=== PATIENT | female | born 1950 | race Caucasian/White ===

== ENCOUNTER 2016-05-28 09:33 | Emergency (ER) | payer MEDICAID ==
[~2016-05-28] VITALS: Ht 154.9 cm; Wt 95.3 kg
[2016-05-28] MEDS ORDERED: SODIUM CHLORIDE 0.9% 1,000 ML IV ONE (10:08)
[2016-05-28 10:13] LABS: Urine RBC None Seen /hpf (0 - 4)
[2016-05-28 10:20] LABS: Urine Bilirubin Negative (Negative); Urine Blood Negative /uL (Negative); Urine Color Yellow (Yellow); Urine Glucose Normal (Normal); Urine Ketone Negative (Negative); Urine Nitrite Negative (Negative); Urine Squamous Epithelial Cell FEW /hpf (<5); Urine Urobilinogen Normal (Negative)
[2016-05-28 10:29] LABS: Basophils # (auto) 0.1 uL; Basophils % (auto) 0.8 % (0.0-2.0); Eosinophils # (auto) 0.2 uL; Eosinophils % (auto) 1.6 % (0.0-7.0); Hematocrit 40.7 % (36.0-46.0); Hemoglobin 13.4 g/dL (12.2-16.2); Lymphocytes % (auto) 23.6 % (10.0-50.0); Mean Corpuscular Hemoglobin 28.5 pg (28.0-32.0); Mean Corpuscular Hgb Conc. 32.9 g/dL (32.0-36.0); Mean Corpuscular Volume 86.7 fL (80.0-100.0); Mean Platelet Volume 7.9 fL (7.4-10.4); Monocytes # (auto) 0.7 uL; Monocytes % (auto) 5.6 % (0.0-12.0); Neutrophils # (auto) 8.8 uL; Neutrophils % (auto) 68.4 % (37.0-80.0); Platelet Count (auto) 361 10^3/uL (140-450); Red Cell Distribution Width 15.1 % (11.6-16.0); White Blood Cell 12.8 10^3/uL (4.4-10.8)
[2016-05-28 10:57] LABS: Albumin 3.4 g/dL (3.4-5.0); BUN/Creatinine Ratio 14.5; Bilirubin, Total 0.3 mg/dL (0.2-1.0); Calcium 8.8 mg/dL (8.5-10.1); Total Protein 7.2 g/dL (6.4-8.2)
[2016-05-28 11:13] VITALS: BP 123/75
== END 2016-05-28 12:54 | disposition home or self-care (01) ==
LOC: ER 09:33
DX: N39.0 Urinary tract infection, site not specified (principal); M19.90 Unspecified osteoarthritis, unspecified site; J45.909 Unspecified asthma, uncomplicated; K21.9 Gastro-esophageal reflux disease without esophagitis; I10 Essential (primary) hypertension; R51 Headache
CPT/HCPCS: 36415; 70450; 71010; 80053; 81001; 85025; 96360; 99285; J7030; 93005

== ENCOUNTER 2020-01-07 10:13 | Emergency (ER) | payer MEDICAID, OTHER ==
[~2020-01-07] VITALS: Ht 154.9 cm; Wt 97.5 kg
[2020-01-07 10:22] VITALS: BP 139/70
== END 2020-01-07 11:26 | disposition home or self-care (01) ==
LOC: ER 10:13
DX: B35.9 Dermatophytosis, unspecified (principal); L01.00 Impetigo, unspecified; K21.9 Gastro-esophageal reflux disease without esophagitis; J45.909 Unspecified asthma, uncomplicated; Z90.710 Acquired absence of both cervix and uterus; Z88.0 Allergy status to penicillin; Z88.2 Allergy status to sulfonamides

== ENCOUNTER 2020-02-15 13:36 | Emergency (ER) | payer OTHER ==
[~2020-02-15] VITALS: Ht 154.9 cm; Wt 95.3 kg
[2020-02-15 15:01] VITALS: BP 129/88
== END 2020-02-15 15:43 | disposition home or self-care (01) ==
LOC: ER 13:36
DX: B00.1 Herpesviral vesicular dermatitis (principal); M19.90 Unspecified osteoarthritis, unspecified site; J45.909 Unspecified asthma, uncomplicated; Z90.710 Acquired absence of both cervix and uterus; Z90.89 Acquired absence of other organs; Z88.0 Allergy status to penicillin; Z88.2 Allergy status to sulfonamides

== ENCOUNTER → 2022-11-21 | Outpatient (CLI) | payer OTHER ==
[2022-11-21 11:30] LABS: Basophils # (auto) 0.1 10 ^3/uL (0-0.2); Basophils % (auto) 0.6 % (0.0-2.0); Eosinophils # (auto) 0.2 10 ^3/uL (0-0.8); Hemoglobin 14.2 g/dL (12.2-16.2); Lymphocytes # (auto) 4.5 10 ^3/uL (0.4-5.4); Lymphocytes % (auto) 45.8 % (10.0-50.0); Mean Corpuscular Hgb Conc. 33.1 g/dL (32.0-36.0); Mean Corpuscular Volume 87.8 fL (80.0-100.0); Monocytes # (auto) 0.6 10 ^3/uL (0-1.3); Monocytes % (auto) 6.2 % (0.0-12.0); Neutrophils # (auto) 4.5 10 ^3/uL (1.6-8.6); Neutrophils % (auto) 45.4 % (37.0-80.0); Nucleated Red Blood Cells % 0.1 %; Red Blood Cells 4.89 10^6/uL (4.0-5.20); Red Cell Distribution Width 13.6 % (11.8-14.3); White Blood Cell 9.9 10^3/uL (4.4-10.8)
[2022-11-21 11:34] LABS: Urine Bacteria FEW /hpf (None Seen); Urine Blood Negative /uL (Negative); Urine Clarity Clear (Clear); Urine Color Yellow (Yellow); Urine Mucus FEW (None Seen); Urine Protein, UAD TRACE (Negative); Urine Specific Gravity 1.022 (1.001-1.035); Urine Urobilinogen Normal (Negative); Urine WBC 2 /hpf (0 - 5)
[2022-11-21 12:01] LABS: Alanine Aminotransferase 21 U/L (7-40); Albumin 4.4 g/dL (3.2-4.8); Alkaline Phosphatase 92 U/L (46-116); Anion Gap 6.9 (5-15); Aspartate Aminotransferase 21 U/L (13-40); Blood Urea Nitrogen 13 mg/dL (9-23); Calcium 9.5 mg/dL (8.5-10.1); Carbon Dioxide 26.1 mmol/L (20-30); Chloride 106 mmol/L (98-107); Cholesterol 145 mg/dL (< 200); Glucose 89 mg/dL (74-106); LDL Cholesterol 77 mg/dL (< 100); Potassium 4.7 mmol/L (3.5-5.1); Sodium 139 mmol/L (136-145); Triglycerides 75 mg/dL (< 150)
[2022-11-21 12:02] LABS: Bilirubin, Total 0.5 mg/dL (0.2-1.0); HDL Cholesterol 61 mg/dL (40-59)
== END | disposition home or self-care (01) ==
LOC: LAB 10:53
PROVIDERS: ATTEND Internal Medicine
DX: Z00.00 Encounter for general adult medical examination without abnormal findings (principal); E78.5 Hyperlipidemia, unspecified; E03.9 Hypothyroidism, unspecified; E55.9 Vitamin D deficiency, unspecified; R73.9 Hyperglycemia, unspecified
CPT/HCPCS: 36415; 80053; 80061; 81001; 82306; 83036; 84436; 84443; 85025; 87086

== ENCOUNTER 2023-03-30 14:18 | Emergency (ER) | payer OTHER ==
[~2023-03-30] VITALS: Ht 154.9 cm; Wt 97.8 kg
[2023-03-30 14:44] LABS: Basophils # (auto) 0.1 10 ^3/uL (0-0.2); Basophils % (auto) 0.5 % (0.0-2.0); Eosinophils # (auto) 0.2 10 ^3/uL (0-0.8); Eosinophils % (auto) 1.5 % (0.0-7.0); Hematocrit 43.9 % (36.0-46.0); Hemoglobin 14.2 g/dL (12.2-16.2); Lymphocytes # (auto) 4.5 10 ^3/uL (0.4-5.4); Lymphocytes % (auto) 44.1 % (10.0-50.0); Mean Corpuscular Hemoglobin 29.1 pg (28.0-32.0); Mean Corpuscular Hgb Conc. 32.4 g/dL (32.0-36.0); Mean Corpuscular Volume 89.8 fL (80.0-100.0); Monocytes # (auto) 0.7 10 ^3/uL (0-1.3); Monocytes % (auto) 6.6 % (0.0-12.0); Neutrophils # (auto) 4.8 10 ^3/uL (1.6-8.6); Neutrophils % (auto) 47.3 % (37.0-80.0); Red Blood Cells 4.89 10^6/uL (4.0-5.20); Red Cell Distribution Width 13.9 % (11.8-14.3); White Blood Cell 10.2 10^3/uL (4.4-10.8)
[2023-03-30 15:09] LABS: Alanine Aminotransferase 19 U/L (7-40); Albumin 4.7 g/dL (3.2-4.8); Alkaline Phosphatase 89 U/L (46-116); Anion Gap 8 (5-15); Aspartate Aminotransferase 22 U/L (13-40); BUN/Creatinine Ratio 11.3 (10.0-20.0); Bilirubin, Total 0.5 mg/dL (0.2-1.0); Blood Urea Nitrogen 11 mg/dL (9-23); Calcium 9.4 mg/dL (8.7-10.4); Carbon Dioxide 25 mmol/L (20-30); Chloride 105 mmol/L (98-107); Glucose 137 mg/dL (74-106); Magnesium 1.8 mg/dL (1.6-2.6); Potassium 4.3 mmol/L (3.5-5.1); Sodium 138 mmol/L (136-145); Total Protein 7.2 g/dL (5.7-8.2)
[2023-03-30 15:10] LABS: INR 1.07 (0.9-1.15); Partial Thromboplastin Time 27.7 SEC (24.5-34.5); Prothrombin Time 11.2 sec (9.3-11.8)
[2023-03-30] MEDS ORDERED: LORazepam 0.5 MG TAB PO ONE (15:30)
[2023-03-30 15:56] VITALS: BP 145/62; PULSE 82; RESP 18; TEMP 98.6; O2SAT 97
[2023-03-30 16:43] LABS: Urine Bacteria NONE SEEN /hpf (None Seen); Urine Blood Negative /uL (Negative); Urine Clarity Clear (Clear); Urine Color Colorless (Yellow); Urine Hyaline Cast FEW /lpf (0 - 2); Urine Mucus FEW (None Seen); Urine Protein, UAD Negative (Negative); Urine Specific Gravity 1.007 (1.001-1.035); Urine Urobilinogen Normal (Negative); Urine WBC 1 /hpf (0 - 5)
== END 2023-03-30 17:13 | disposition home or self-care (01) ==
LOC: ER 14:18
DX: E07.9 Disorder of thyroid, unspecified (principal); R00.2 Palpitations; M19.90 Unspecified osteoarthritis, unspecified site; J45.909 Unspecified asthma, uncomplicated; K21.9 Gastro-esophageal reflux disease without esophagitis; Z98.890 Other specified postprocedural states; Z88.8 Allergy status to other drugs, medicaments and biological substances; Z79.899 Other long term (current) drug therapy
CPT/HCPCS: 36415; 71045; 80053; 81001; 83735; 84443; 84484; 85025; 85610; 85730; 93005

== ENCOUNTER → 2023-05-30 | Outpatient (CLI) | payer MEDICAID ==
[2023-05-30 10:42] LABS: Basophils # (auto) 0 10 ^3/uL (0-0.2); Basophils % (auto) 0.8 % (0.0-2.0); Eosinophils # (auto) 0.1 10 ^3/uL (0-0.8); Eosinophils % (auto) 2.4 % (0.0-7.0); Hematocrit 40.7 % (36.0-46.0); Hemoglobin 13.4 g/dL (12.2-16.2); Lymphocytes # (auto) 2.9 10 ^3/uL (0.4-5.4); Lymphocytes % (auto) 45.1 % (10.0-50.0); Mean Corpuscular Hemoglobin 29.6 pg (28.0-32.0); Mean Corpuscular Volume 89.7 fL (80.0-100.0); Monocytes # (auto) 0.5 10 ^3/uL (0-1.3); Monocytes % (auto) 7.5 % (0.0-12.0); Neutrophils # (auto) 2.8 10 ^3/uL (1.6-8.6); Neutrophils % (auto) 44.2 % (37.0-80.0); Red Blood Cells 4.54 10^6/uL (4.0-5.20); White Blood Cell 6.4 10^3/uL (4.4-10.8)
[2023-05-30 11:00] LABS: Urine Bacteria NONE SEEN /hpf (None Seen); Urine Blood Negative /uL (Negative); Urine Clarity Clear (Clear); Urine Color Colorless (Yellow); Urine Protein, UAD Negative (Negative); Urine Specific Gravity 1.016 (1.001-1.035); Urine Urobilinogen Normal (Negative); Urine WBC 2 /hpf (0 - 5)
[2023-05-30 11:27] LABS: Folate (Folic Acid) > 24.00 ng/mL (>5.38); T3 Total 1.03 ng/mL (0.60-1.81)
[2023-05-30 11:28] LABS: Ferritin 26.7 ng/mL (10-291)
[2023-05-30 11:52] LABS: Alanine Aminotransferase 18 U/L (7-40); Albumin 4.4 g/dL (3.2-4.8); Alkaline Phosphatase 78 U/L (46-116); Anion Gap 6 (5-15); Aspartate Aminotransferase 22 U/L (13-40); BUN/Creatinine Ratio 14.5 (10.0-20.0); Bilirubin, Total 0.3 mg/dL (0.2-1.0); Blood Urea Nitrogen 12 mg/dL (9-23); Calcium 9.3 mg/dL (8.7-10.4); Carbon Dioxide 28 mmol/L (20-30); Chloride 107 mmol/L (98-107); Creatine Kinase IFCC 59 U/L (34-145); Glucose 87 mg/dL (74-106); Potassium 4.6 mmol/L (3.5-5.1); Sodium 141 mmol/L (136-145); Total Protein 7.2 g/dL (5.7-8.2)
[2023-05-30 12:50] LABS: % Iron Saturation 22.3 % (15-50)
[2023-05-30 13:00] LABS: LDL Cholesterol 82 mg/dL (< 100); Triglycerides 100 mg/dL (< 150)
[2023-05-30 13:01] LABS: Cholesterol 152 mg/dL (< 200)
[2023-05-30 13:02] LABS: HDL Cholesterol 62 mg/dL (40-59)
== END | disposition home or self-care (01) ==
LOC: LAB 10:02
PROVIDERS: ATTEND Internal Medicine
DX: Z00.00 Encounter for general adult medical examination without abnormal findings (principal); E78.5 Hyperlipidemia, unspecified; E03.9 Hypothyroidism, unspecified; E55.9 Vitamin D deficiency, unspecified; E66.01 Morbid (severe) obesity due to excess calories
CPT/HCPCS: 36415; 80053; 80061; 81001; 82306; 82550; 82607; 82728; 82746; 83036; 83540; 83550; 84436; 84443; 84480; 85025; 87086

== ENCOUNTER → 2023-08-27 | Outpatient (CLI) | payer MEDICAID ==
[2023-08-27 10:29] LABS: Urine Bacteria None Seen /hpf (None Seen)
[2023-08-27 10:57] LABS: Urine Blood Negative /uL (Negative); Urine Clarity Clear (Clear); Urine Color Light-Yellow (Yellow); Urine Mucus FEW (None Seen); Urine Protein, UAD Negative (Negative); Urine Specific Gravity 1.018 (1.001-1.035); Urine Urobilinogen Normal (Negative); Urine WBC <1 /hpf (0 - 5); Urine pH 5.5 (5.0-9.0)
[2023-08-27 11:05] LABS: Alanine Aminotransferase 21 U/L (7-40); Albumin 3.8 g/dL (3.2-4.8); Alkaline Phosphatase 75 U/L (46-116); Anion Gap 4 (5-15); Aspartate Aminotransferase 27 U/L (13-40); BUN/Creatinine Ratio 13.3 (10.0-20.0); Bilirubin, Total 0.4 mg/dL (0.2-1.0); Blood Urea Nitrogen 12 mg/dL (9-23); Calcium 9.7 mg/dL (8.5-10.1); Carbon Dioxide 29 mmol/L (20-30); Chloride 107 mmol/L (98-107); Cholesterol 151 mg/dL (< 200); Glucose 92 mg/dL (74-106); HDL Cholesterol 59 mg/dL (40-59); LDL Cholesterol 75 mg/dL (< 100); Potassium 4.6 mmol/L (3.5-5.1); Sodium 140 mmol/L (136-145); Total Protein 6.9 g/dL (5.7-8.2); Triglycerides 84 mg/dL (< 150)
[2023-08-27 11:15] LABS: % Iron Saturation 29.3 % (15-50)
[2023-08-27 11:18] LABS: T3 Total 1.11 ng/mL (0.60-1.81)
[2023-08-27 11:20] LABS: Free T4 (Free Thyroxine) 1.42 ng/dL (0.89-1.76)
[2023-08-27 11:54] LABS: Folate (Folic Acid) > 48.00 ng/mL (>5.38)
== END | disposition home or self-care (01) ==
LOC: LAB 10:15
PROVIDERS: ATTEND Internal Medicine
DX: E11.69 Type 2 diabetes mellitus with other specified complication (principal); E78.5 Hyperlipidemia, unspecified; E55.9 Vitamin D deficiency, unspecified; D64.9 Anemia, unspecified; E03.5 Myxedema coma
CPT/HCPCS: 36415; 80053; 80061; 81001; 82306; 82746; 83036; 83540; 83550; 84439; 84443; 84480; 87086

== ENCOUNTER 2023-09-29 08:22 | Day surgery (SDC) | payer MEDICAID ==
[2023-09-25 12:05] LABS: Basophils # (auto) 0.1 10 ^3/uL (0-0.2); Basophils % (auto) 0.7 % (0.0-2.0); Eosinophils # (auto) 0.3 10 ^3/uL (0-0.8); Eosinophils % (auto) 3.6 % (0.0-7.0); Hematocrit 40.2 % (36.0-46.0); Hemoglobin 13.3 g/dL (12.2-16.2); Lymphocytes # (auto) 3.9 10 ^3/uL (0.4-5.4); Lymphocytes % (auto) 47.4 % (10.0-50.0); Mean Corpuscular Hgb Conc. 33.2 g/dL (32.0-36.0); Mean Corpuscular Volume 90.5 fL (80.0-100.0); Monocytes # (auto) 0.8 10 ^3/uL (0-1.3); Monocytes % (auto) 9.5 % (0.0-12.0); Neutrophils # (auto) 3.2 10 ^3/uL (1.6-8.6); Neutrophils % (auto) 38.8 % (37.0-80.0); Red Blood Cells 4.44 10^6/uL (4.0-5.20); Red Cell Distribution Width 13.2 % (11.8-14.3); White Blood Cell 8.3 10^3/uL (4.4-10.8)
[2023-09-25 12:29] LABS: Urine Bacteria FEW /hpf (None Seen); Urine Blood Negative /uL (Negative); Urine Clarity Clear (Clear); Urine Color Yellow (Yellow); Urine Mucus FEW (None Seen); Urine Protein, UAD TRACE (Negative); Urine Specific Gravity 1.028 (1.001-1.035); Urine Urobilinogen Normal (Negative); Urine WBC 1 /hpf (0 - 5); Urine pH 5.5 (5.0-9.0)
[2023-09-25 12:39] LABS: INR 1.04 (0.9-1.15); Partial Thromboplastin Time 25.1 SEC (24.5-34.5)
[2023-09-25 13:05] LABS: Alanine Aminotransferase 22 U/L (7-40); Albumin 4.5 g/dL (3.2-4.8); Alkaline Phosphatase 68 U/L (46-116); Anion Gap 5 (5-15); Aspartate Aminotransferase 21 U/L (13-40); BUN/Creatinine Ratio 16.2 (10.0-20.0); Bilirubin, Total 0.3 mg/dL (0.2-1.0); Blood Urea Nitrogen 16 mg/dL (9-23); Calcium 9.9 mg/dL (8.5-10.1); Carbon Dioxide 27 mmol/L (20-30); Chloride 106 mmol/L (98-107); Glucose 106 mg/dL (74-106); Potassium 4.4 mmol/L (3.5-5.1); Sodium 138 mmol/L (136-145); Total Protein 6.8 g/dL (5.7-8.2)
[~2023-09-29] VITALS: Ht 152.4 cm; Wt 98.0 kg
[~2023-09-29 08:22] MED LIST: ALBUAER3 IN; DICL1GEL73 TD; LEVO88TA4 PO; MONT-8 OR; OXYB5TAB14 PO; POTA-215 PO; SIMV40TA18 PO; TRAM50TA2 PO
[2023-09-29] MEDS: CLINDAMYCIN 600MG IV 50 ML IV ONE (10:22)
[2023-09-29] MEDS: LIDOCAINE 1% HCL (LOCAL ANESTH.) INJ 20ML MDV ONE (10:22)
[2023-09-29] MEDS ORDERED: MIDAZOLAM HCL 2MG/2ML 2ml VIAL (1mg/ml) ONE (10:25)
[2023-09-29] MEDS ORDERED: fentaNYL CITRATE 100 MCG/2 ML VL ONE (10:25)
[2023-09-29] MEDS ORDERED: ONDANSETRON HCL 4 MG/2 ML VIAL ONE (10:28)
[2023-09-29] MEDS ORDERED: LIDOCAINE 2% (LOCAL ANESTH.) PF 5ml SDV ONE (10:28)
[2023-09-29] MEDS ORDERED: PROPOFOL 10 MG/ML 20 ML IV ONE (10:28)
[2023-09-29] MEDS ORDERED: KETAMINE 50mg/ML 1ml syringe ONE (10:37)
[2023-09-29 11:06] VITALS: PULSE 79; RESP 13; O2SAT 98
[2023-09-29] MEDS ORDERED: ONDANSETRON HCL 4 MG/2 ML VIAL IV ONE (11:30)
[2023-09-29] MEDS ORDERED: HYDROmorphone HCL 2 MG/ML VL/or syr IV PRN (11:30)
[2023-09-29 11:51] VITALS: BP 124/92; PULSE 59; RESP 14; O2SAT 98
== END 2023-09-29 12:20 | disposition home or self-care (01) ==
LOC: SUR 08:22
PROVIDERS: ATTEND Orthopaedic Surgery Adult Reconstructive Orthopaedic Surgery
DX: M67.431 Ganglion, right wrist (principal); E03.9 Hypothyroidism, unspecified; J45.909 Unspecified asthma, uncomplicated; Z79.891 Long term (current) use of opiate analgesic; Z79.890 Hormone replacement therapy; Z79.899 Other long term (current) drug therapy; Z85.820 Personal history of malignant melanoma of skin; Z90.710 Acquired absence of both cervix and uterus; Z90.89 Acquired absence of other organs; Z90.49 Acquired absence of other specified parts of digestive tract; Z98.891 History of uterine scar from previous surgery; Z98.890 Other specified postprocedural states; Z88.0 Allergy status to penicillin; Z88.2 Allergy status to sulfonamides; Z88.8 Allergy status to other drugs, medicaments and biological substances
CPT/HCPCS: 25111; 36415; 80053; 81001; 85025; 85610; 85730; 88305; J2001; J2250; J2405; J2704; J3010; J3490

== ENCOUNTER 2024-05-07 19:45 | Inpatient (IN) | payer MEDICAID ==
[~2024-05-07] VITALS: Ht 154.9 cm; Wt 99.0 kg
--- NOTE | 2024-05-07 19:56 | ED.PDOC ---
HPI Comments 73 year old female presents to the ED with chief complaint of chest pain. Patient reports that she has been experiencing worsening 10/10 left sided chest tightness with associated SOB and dry cough for the past 2 days. Patient relays that she believed it was due to her asthma, so she had taken her inhaler for the past 2 days with no relief noted. Patient states she has had similar symptoms in the past and was seen in the ED, but does not remember the diagnosis given to he r. Patient denies any N/V/D, dizziness, fever, chills, headache, numbness, or weakness. Time Seen by MD: 19:54 Primary Care Provider: [facility] Reviewed Notes: Nurses Notes, Medications, Allergies Allergies: Coded Allergies: Carisoprodol (Verified Allergy, Unknown, 12/25/15) Penicillins (Unverified Allergy, Unknown, 12/25/15) Sulfa Drugs (Unverified Allergy, Unknown, 12/25/15) Home Meds Reported Medications Potassium Chloride (Klor-Con M10) 10 Meq Tab, 10 MEQ PO DAILY, TAB 09/25/23 Albuterol Sulfate (VENTOLIN MDI) 90 Mcg Ih, 90 MCG IN PRN, INH 09/25/23 Montelukast Sodium (MONTELUKAST SODIUM) 10 Mg Tab, 10 MG OR DAILY, TAB 09/25/23 Oxybutynin Chloride (Oxybutynin Chloride) 5 Mg Tab, 5 MG PO DAILY, TAB 09/25/23 Levothyroxine Sodium (Levothyroxine Sodium) 88 Mcg Tab, 88 MCG PO DAILY, TAB 09/25/23 Tramadol Hcl (Tramadol Hcl) 50 Mg Tab, 50 MG PO PRN, TAB 09/25/23 Simvastatin (Simvastatin) 40 Mg Tab, 40 MG PO DAILY, TAB 09/25/23 Diclofenac Sodium (Topical) (Diclofenac Sodium) 1 % Gel, 1 % TD PRN, GEL 09/25/23 Information Source: Patient Mode of Arrival: Ambulatory Severity: Moderate Timing: Days Duration: Since onset Prehospital treatment: Breathing Tx Location: Chest (L) Radiation: No Radiation Quality: Tightness Onset: At Rest Cardiac Risk Factors: Hyperlipidemia PE Risk Factors: None History of: Similar pain in past Associated Signs and Symptoms: SOB Past Medical History PAST MEDICAL HISTORY: Arthritis, Asthma, CKF, GERD, High Lipids, Thyroid Surgical History: Appendectomy, Hysterectomy, Tonsillectomy JACK OF ALL TRADES History: No Pertinent JACK OF ALL TRADES History Family History Family History: Reviewed,noncontributory to illness, Family hx of Cancer Social History Smoker: Non-Smoker Alcohol: Denies ETOH Use Drugs: Denies Drug Use Lives In: Home Constitutional: denies: chills, diaphoresis, fatigue, fever, malaise, sweats, weakness, others EENTM: denies: blurred vision, double vision, ear bleeding, ear discharge, ear drainage, ear pain, ear ringing, eye pain, eye redness, hearing loss, mouth pain, mouth swelling, nasal discharge, nose bleeding, nose congestion, nose pain, photophobia, tearing, throat pain, throat swelling, voice changes, others Respiratory: reports: cough, shortness of breath; denies: hemoptysis, orthopnea, SOB at rest, SOB with excertion, stridor, wheezing, others Cardiovascular: reports: chest pain; denies: dizzy spells, diaphoresis, Dyspnea on exertion, edema, irregular heart beat, left arm pain, lightheadedness, palpitations, PND, syncope, others Gastrointestinal: denies: abdomen distended, abdominal pain, blood streaked bowels, constipated, diarrhea, dysphagia, difficulty swallowing, hematemesis, melena, nausea, poor appetite, poor fluid intake, rectal bleeding, rectal pain, vomiting, others Genitourinary: denies: abnormal vagina bleeding, burning, dyspareunia, dysuria, flank pain, frequency, hematuria, incontinence, pain, , vagina discharge, urgency, others Neurological: denies: dizziness, fainting, headache, left sided numbness, left sided weakness, numbness, paresthesia, pre-existing deficit, right sided numbness, right sided weakness, seizure, speech problems, tingling, tremors, weakness, others Musculoskeletal: denies: back pain, gout, joint pain, joint swelling, muscle pain, muscle stiffness, neck pain, others Integumetry: denies: bruises, change in color, change in hair/nails, dryness, laceration, lesions, lumps, rash, wounds, others Allergic/Immunocompromised: denies: Difficulty Healing, Frequent Infections, Hives, Itching, others Hematologic/Lymphatic: denies: anemia, blood clots, easy bleeding, easy bruising, swollen glands, others Endocrine: denies: excessive hunger, excessive sweating, excessive thirst, excessive urination, flushing, intolerance to cold, intolerance to heat, unexplained weight gain, unexplained weight loss, others Psychiatric: denies: anxiety, bipolar disorder, depression, hopeless, panic disorder, schizophrenia, sleepless, suicidal, others All Other Systems: Reviewed and Negative Physical Exam General Appearance: Moderate Distress, Obese HEENT: Normal ENT Inspection, Pharynx Normal, TMs Normal Neck: Full Range of Motion, Non-Tender, Normal, Normal Inspection Respiratory: Chest Non-Tender, Lungs Clear, No Accessory Muscle Use, No Respira tory Distress, Normal Breath Sounds Cardiovascular: No Edema, No JVD, No Murmur, No Gallop, Tachycardia Breast Exam: Deferred Gastrointestinal: No Organomegaly, Non Tender, No Pulsatile Mass, Normal Bowel Sounds, Soft Genitalia: Deferred Pelvic: Deferred Rectal: Deferred Extremities: No calf tenderness, Normal capillary refill, Normal inspection, Normal range of motion, Non-tender, No pedal edema Musculoskeletal : Apperance: Normal Neurologic: Alert, wood caulker II-XII nml as Tested, No Motor Deficits, Normal Affect, Normal Mood, No Sensory Deficits Cerebellar Function: Normal Reflexes: Normal Skin: Dry, Normal Color, Warm Lymphatic: No Adenopathy EKG EKG : Pulse Rate (adult): 101 [place]: Normal Cardiac Rhythm: ST Block: None Hypertrophy: None ST: Normal Was a procedure done? Was a procedure done?: No CP Differential Dx Differential Diagnosis: Angina, [place], Pulmonary Embolus Differential Diagnosis: CHF Differential Diagnosis: Pericarditis X-Ray, Labs, Meds, VS Vital Signs Date Time Temp Pulse Resp B/P (MAP) Pulse Ox O2 Delivery O2 Flow Rate FiO2 05/07/24 21:00 98.4 94 16 117/55 (75) 98 98.4 05/07/24 20:43 96 05/07/24 19:59 98.4 98 16 132/66 (88) 99 05/07/24 19:56 101 05/07/24 19:49 101 Lab Test 05/07/24 20:00 Range/Units White Blood Count 12.1 H 4.4-10.8 10^3/uL Red Blood Count 4.55 4.0-5.20 10^6/uL Hemoglobin 13.1 12.2-16.2 g/dL Hematocrit 39.5 36.0-46.0 % Mean Corpuscular Volume 86.9 80.0-100.0 fL Mean Corpuscular Hemoglobin 28.8 28.0-32.0 pg Mean Corpuscular Hemoglobin Concent 33.2 32.0-36.0 g/dL Red Cell Distribution Width 13.3 11.8-14.3 % Platelet Count 208 140-450 10^3/uL Mean Platelet Volume 7.8 6.9-10.8 fL Neutrophils (%) (Auto) 51.8 37.0-80.0 % Lymphocytes (%) (Auto) 34.2 10.0-50.0 % Monocytes (%) (Auto) 10.7 0.0-12.0 % Eosinophils (%) (Auto) 2.2 0.0-7.0 % Basophils (%) (Auto) 1.1 0.0-2.0 % Neutrophils # (Auto) 6.2 1.6-8.6 10 ^3/uL Lymphocytes # (Auto) 4.1 0.4-5.4 10 ^3/uL Monocytes # (Auto) 1.3 0-1.3 10 ^3/uL Eosinophils # (Auto) 0.3 0-0.8 10 ^3/uL Basophils # (Auto) 0.1 0-0.2 10 ^3/uL Nucleated Red Blood Cells 0.0 % D-Dimer, Quantitative 13.96 H 0.0-0.49 mg/L FEU Sodium Level 141 136-145 mmol/L Potassium Level 4.4 3.5-5.1 mmol/L Chloride Level 105 98-107 mmol/L Carbon Dioxide Level 29 20-31 mmol/L Anion Gap 7 5-15 Blood Urea Nitrogen 21 9-23 mg/dL Creatinine 1.02 0.550-1.02 mg/dL Glomerular Filtration Rate Calc 58 >90 mL/min BUN/Creatinine Ratio 20.6 H 10.0-20.0 Serum Glucose 108 H 74-106 mg/dL Calcium Level 9.8 8.7-10.4 mg/dL Troponin I High Sensitivity < 3 L </=34 ng/L Current Medications Medications (Trade) Dose Ordered Sig/Shira Route Start Time Stop Time Status Last Admin Aspirin 162 mg ONCE ONCE PO 05/07/24 20:00 05/07/24 20:01 DC 05/07/24 21:07 IV Hep-Lock was established The patient was given aspirin 162 mg by mouth The troponin level is negative The CBC shows an elevated white blood cell count of 12.1 The rest of the CBC is within normal limits The D-dimer is 13.96 The chemistry panel is within normal limits We are going to order a CT scan of the chest to rule out PE secondary to the elevated D-dimer The patient was being admitted at this time Images Reviewed?: Images reviewed and evaluated by me Time of 1ST Reevaluation: 21:11 Reevaluation 1ST: Unchanged Patient Education/Counseling: Diagnosis, Treatment, Prognosis Family Education/Counseling: No Family Present Additional Information - I reviewed the following notes from patient's past medical encounters: 03/30/23 for Thyroid disorder - The following tests were ordered, and results were reviewed by me: (Labs, X- Ray, EKG): CBC, CMP, Troponin, EKG, Chest XR, CT Angio Chest - Additional information was gathered from interviewing the following independent Historian: (Family, Other Providers, EMT): None - I reviewed and agreed with the following test results read by other provider: (X-ray, CT, US): Chest XR, CT Angio Chest - I discussed treatments and results with medical personnel. Departure 1 Departure Time of Disposition: 21:15 Impression: Primary Impression: Acute chest pain Additional Impression: Elevated d-dimer Disposition: ADMITTED INPATIENT Admit to: Tele Condition: Fair Critical Care Note Critical Care Time?: Yes (45 min-critical care time only) Stability Stability form required: Yes Unstable for transfer: Telemetry monitoring (Telemetry monitoring required), ED Physician Assesment (Clinical assesment) Heart Score Heart Score: Heart Score Response (Comments) Value History Highly Suspicious 2 EKG Normal 0 Age >65 2 Risk Factors 1 or 2 risk factors 1 Troponin Normal limit 0 Total 5 I personally scribed for JG SIFUENTES MD ([email or web address]) on 05/07/24 at 19:56. Electronically submitted by Cody Hunt ([email or web address]). I personally scribed for JG SIFUENTES MD ([email or web address]) on 05/07/24 at 21:10. Electronically submitted by Cody Hunt ([email or web address]). JG SIFUENTES MD May 07, 2024 19:56
--- NOTE | 2024-05-07 19:58 | ECG ---
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
[2024-05-07 20:13] LABS: Basophils # (auto) 0.1 10 ^3/uL (0-0.2); Basophils % (auto) 1.1 % (0.0-2.0); Eosinophils # (auto) 0.3 10 ^3/uL (0-0.8); Eosinophils % (auto) 2.2 % (0.0-7.0); Hematocrit 39.5 % (36.0-46.0); Hemoglobin 13.1 g/dL (12.2-16.2); Lymphocytes # (auto) 4.1 10 ^3/uL (0.4-5.4); Lymphocytes % (auto) 34.2 % (10.0-50.0); Mean Corpuscular Hemoglobin 28.8 pg (28.0-32.0); Mean Corpuscular Hgb Conc. 33.2 g/dL (32.0-36.0); Mean Corpuscular Volume 86.9 fL (80.0-100.0); Monocytes # (auto) 1.3 10 ^3/uL (0-1.3); Monocytes % (auto) 10.7 % (0.0-12.0); Neutrophils # (auto) 6.2 10 ^3/uL (1.6-8.6); Neutrophils % (auto) 51.8 % (37.0-80.0); Platelet Count (auto) 208 10^3/uL (140-450); Red Blood Cells 4.55 10^6/uL (4.0-5.20); Red Cell Distribution Width 13.3 % (11.8-14.3); White Blood Cell 12.1 10^3/uL (4.4-10.8)
[2024-05-07 20:23] LABS: Chloride 105 mmol/L (98-107); Potassium 4.4 mmol/L (3.5-5.1); Sodium 141 mmol/L (136-145)
[2024-05-07 20:24] LABS: Anion Gap 7 (5-15); Carbon Dioxide 29 mmol/L (20-31)
[2024-05-07 20:25] LABS: Calcium 9.8 mg/dL (8.7-10.4)
[2024-05-07 20:29] LABS: BUN/Creatinine Ratio 20.6 (10.0-20.0); Blood Urea Nitrogen 21 mg/dL (9-23)
[2024-05-07 20:33] LABS: Glucose 108 mg/dL (74-106)
--- NOTE | 2024-05-07 20:38 | DVH ---
XY CHEST TWO VIEWS ROUTINE CLINICAL HISTORY: CP COMPARISON: 03/30/2023 TECHNIQUE: Frontal and lateral view of the chest was obtained FINDINGS: Lines and Tubes: None Lungs: No focal consolidation. Pleura: No effusion. No pneumothorax. Cardiomediastinal contours: Unremarkable Bones: No acute osseous abnormality. IMPRESSION: No acute cardiopulmonary disease.
[2024-05-07] MEDS: ASPirin 81 mg TAB PO ONE (21:07)
[2024-05-08] VITALS (11 sets, daily range): BP systolic 125–129; BP diastolic 44–56; PULSE 78–95; RESP 16–22; TEMP 98.3; O2SAT 95–100
[2024-05-08] MEDS: IOHEXOL 350 MG/ML 100ML IJ ONE (01:46)
--- NOTE | 2024-05-08 02:22 | DVH ---
CLINICAL HISTORY: sob TECHNIQUE: CT angiogram of the chest was performed with intravenous contrast. 3D MIP reconstructed i mages were created and archived on the PACS system. This exam was performed according to our [facility] dose optimization program. Up-to-date CT equipment and radiation dose reduction techniques are u tilized as appropriate. COMPARISON: None FINDINGS: Lower Neck: Unremarkable Axilla, Mediastinum and [place]: Small hiatal hernia. No thoracic lymphadenopathy Heart and Great Vessels: Mild cardiomegaly. No pericardial effusion thoracic aorta is patent and nor mal caliber. Common origin of the right brachiocephalic and left common carotid arteries, normal marla iant. Mild mixed atherosclerotic plaque in the thoracic aorta. There is saddle pulmonary embolism, pu lmonary embolism in the distal main pulmonary artery, proximal right pulmonary artery, left pulmonary artery extending into the lobar, segmental, and subsegmental left lower lobe pulmonary arteries and into A few segmental and subsegmental left upper lobe pulmonary arteries. No right heart strain Airway, Lungs and Pleura: Trachea and central airways are patent. Bronchial wall thickening. Mosaic a ttenuation of the lungs. Mild scattered atelectasis scarring in both lungs. No airspace consolidation , pleural effusion, or pneumothorax. Chest Wall and Osseous Structures: Multilevel thoracic spondylosis. No destructive osseous lesion. Upper abdomen: Small hypodensities in the bilateral kidneys most of which are too small to characteri ze though may reflect cysts. There is mild hepatic steatosis. IMPRESSION: 1. Positive for saddle pulmonary embolism as well as pulmonary emboli extending into lobar, segmental , and subsegmental left lower lobe pulmonary arteries, and segmental and subsegmental left upper lobe pulmonary arteries. 2. No right heart strain. 3. Mosaic Attenuation of the lungs which could be small-vessel and small airways disease 4. Mild bronchial wall thickening which could be related to pulmonary edema or acute or chronic bronc hitis 5. Mild cardiomegaly. 6. Small hiatal hernia. Critical Result: Stroke Alert Findings discussed with dr. Ortiz at 05/08/2024 02:10 AM, and acknowledged receipt and understanding of the findings. ..
[2024-05-08 03:05] LABS: Basophils # (auto) 0.1 10 ^3/uL (0-0.2); Basophils % (auto) 0.5 % (0.0-2.0); Eosinophils # (auto) 0.2 10 ^3/uL (0-0.8); Eosinophils % (auto) 1.9 % (0.0-7.0); Hematocrit 41.7 % (36.0-46.0); Hemoglobin 13.9 g/dL (12.2-16.2); Lymphocytes # (auto) 3.4 10 ^3/uL (0.4-5.4); Lymphocytes % (auto) 28.1 % (10.0-50.0); Mean Corpuscular Hemoglobin 29.1 pg (28.0-32.0); Mean Corpuscular Hgb Conc. 33.4 g/dL (32.0-36.0); Monocytes # (auto) 1.1 10 ^3/uL (0-1.3); Monocytes % (auto) 9.2 % (0.0-12.0); Neutrophils # (auto) 7.4 10 ^3/uL (1.6-8.6); Neutrophils % (auto) 60.3 % (37.0-80.0); Nucleated Red Blood Cells % 0.1 %; Platelet Count (auto) 203 10^3/uL (140-450); Red Blood Cells 4.79 10^6/uL (4.0-5.20); Red Cell Distribution Width 13.1 % (11.8-14.3); White Blood Cell 12.3 10^3/uL (4.4-10.8)
[2024-05-08 03:20] LABS: INR 1.02 (0.9-1.15); Partial Thromboplastin Time 27.3 SEC (24.5-34.5); Prothrombin Time 10.8 sec (9.3-11.8)
[2024-05-08] MEDS: HEPARIN SODIUM (PORCINE) 5000 UNITS/ML 1ML VIAL IV ONE ×3 (04:33→12:44)
[2024-05-08] MEDS: HEPARIN DRIP/D5W 100UNITS/ML 250 ML IV SCH ×3 (04:48→21:12)
--- NOTE | 2024-05-08 07:42 | DVHHP2 ---
History of Present Illness Reason for Visit: Chest pain History of Present Illness Katherine Christianson is a 73-year-old female with past medical history of hyperlipidemia, asthma, CKD, arthritis, GERD, thyroid disease, right ganglion wrist surgery, appendectomy, hysterectomy, tonsillectomy, and who presents to the ED with chest pain, cough, and SOB x2 days. Patient reports that she was walking when the pain suddenly started complaints 7/10 stabbing constant and nonradiating. Patient denies any recent sick contacts, any recent illnesses, recent trauma or injury, abdominal pain, nausea, vomiting, diarrhea, fever, chills, lightheadedness, dizziness, and weakness. Patient reports that 2 years ago she had been taking Eliquis for right leg DVT but is now off of it. Cardiovascular: hyperipidemia Pulmonary: Asthma GI: GERD Renal/: Chronic renal insuff Endocrine: Hypothyroidism Past Medical History Arthritis Past Surgical History: Appendectomy, , Hysterectomy, Other (Right ganglion wrist surgery), Tonsillectomy Family History: Cancer, Other (Both mom and dad with lung cancer) Smoke: No ALCOHOL: none Drugs: None Lives: Alone Domestic Violence: Neg Review of Systems Constitutional: No: Fever, Chills, Sweats, Weakness, Malaise, Other Eyes: No: Pain, Vision change, Conjunctivae inflammation, Eyelid inflammation, Other, Redness ENT: No: Ear pain, Ear discharge, Nose pain, Nose discharge, Nose congestion, Mouth pain, Mouth swelling, Throat pain, Throat swelling, Other Respiratory: Shortness of breath; No: Cough, Dry, SOB with excertion, Wheezing, Hemoptysis, Pleuritic Pain, Sputum, Wheezing, Other Cardiovascular: Chest Pain; No: Palpitations, Orthopnea, Paroxysmal Noc. Dyspnea, Edema, Lt Headedness, Other Gastrointestinal: No: Nausea, Vomiting, Abdominal Pain, Diarrhea, Constipation, Melena, Hematochezia, Other Genitourinary: No Dysuria, No Frequency, No Incontinence, No Hematuria, No Rete ntion, No Other Musculoskeletal: No: other, neck pain, shoulder pain, arm pain, back pain, hand pain, leg pain, foot pain Skin: No: Rash, Lesions, Jaundice, Bruising, Other Neurological: No: Weakness, Numbness, Incoordination, Change in speech, Confusion, Seizures, Other Allergies: Coded Allergies: Carisoprodol (Verified Allergy, Unknown, 12/25/15) Penicillins (Unverified Allergy, Unknown, 12/25/15) Sulfa Drugs (Unverified Allergy, Unknown, 12/25/15) Medications Current Medications Medications Dose Ordered Sig/Shira Route Start Time Stop Time Status Last Admin Dose Admin Heparin Sodium/ Dextrose 250 ml @ 18 mls/hr [id number] IV 05/08/24 04:00 05/08/24 04:48 18 MLS/HR Doxycycline Hyclate 100 ml @ 50 mls/hr Q12H IV 05/08/24 07:45 UNV Atorvastatin Calcium 40 mg HS PO 05/08/24 22:00 UNV Morphine Sulfate 2 mg Q30MP PRN IV 05/08/24 07:45 UNV Acetaminophen 650 mg Q6HP PRN PO 05/08/24 07:45 UNV Nitroglycerin 0.4 mg Q5MINP PRN SL 05/08/24 07:45 UNV Ondansetron HCl 4 mg Q4HP PRN IV 05/08/24 07:45 UNV Nitroglycerin 0.4 mg Q5MINP PRN SL 05/08/24 07:45 UNV Morphine Sulfate 2 mg Q30M PRN IV 05/08/24 07:45 UNV Exam Vital Signs Vital Signs Date Time Temp Pulse Resp B/P (MAP) Pulse Ox O2 Delivery O2 Flow Rate FiO2 05/08/24 06:00 68 19 137/56 (83) 98 05/08/24 04:10 Room Air* 0 21 05/08/24 04:00 98.0 98.0 General Appearance: Alert, Oriented X3, Cooperative, No acute distress HEENT: Atraumatic, PERRLA, EOMI, Mucous membr. moist/pink Respiratory: Normal air movement Cardiovascular: Regular rate, Normal S1, Normal S2 Abdominal: Normal bowel sounds, Soft, No tenderness, No hepatospenomegaly, No masses Extremities: No clubbing, No cyanosis, No edema, Normal pulses, No tenderness/swelling Skin: No rashes, No breakdown, No significant lesion Neuro: Normal speech, Strength at 5/5 X4 ext, Normal tone, Sensation intact Psych/Mental Status: Mental status NL, Mood NL Labs/Xrays Labs Test 05/08/24 02:49 05/07/24 23:00 05/07/24 20:00 Range/Units White Blood Count 12.3 H 4.4-10.8 10^3/uL Red Blood Count 4.79 4.0-5.20 10^6/uL Hemoglobin 13.9 12.2-16.2 g/dL Hematocrit 41.7 36.0-46.0 % Mean Corpuscular Volume 87.0 80.0-100.0 fL Mean Corpuscular Hemoglobin 29.1 28.0-32.0 pg Mean Corpuscular Hemoglobin Concent 33.4 32.0-36.0 g/dL Red Cell Distribution Width 13.1 11.8-14.3 % Platelet Count 203 140-450 10^3/uL Mean Platelet Volume 7.9 6.9-10.8 fL Neutrophils (%) (Auto) 60.3 37.0-80.0 % Lymphocytes (%) (Auto) 28.1 10.0-50.0 % Monocytes (%) (Auto) 9.2 0.0-12.0 % Eosinophils (%) (Auto) 1.9 0.0-7.0 % Basophils (%) (Auto) 0.5 0.0-2.0 % Neutrophils # (Auto) 7.4 1.6-8.6 10 ^3/uL Lymphocytes # (Auto) 3.4 0.4-5.4 10 ^3/uL Monocytes # (Auto) 1.1 0-1.3 10 ^3/uL Eosinophils # (Auto) 0.2 0-0.8 10 ^3/uL Basophils # (Auto) 0.1 0-0.2 10 ^3/uL Nucleated Red Blood Cells 0.1 % Prothrombin Time 10.8 9.3-11.8 sec Prothrombin Time INR 1.02 0.9-1.15 Activated Partial Thromboplast Time 27.3 24.5-34.5 SEC Troponin I High Sensitivity < 3 L </=34 ng/L D-Dimer, Quantitative 13.96 H 0.0-0.49 mg/L FEU Sodium Level 141 136-145 mmol/L Potassium Level 4.4 3.5-5.1 mmol/L Chloride Level 105 98-107 mmol/L Carbon Dioxide Level 29 20-31 mmol/L Anion Gap 7 5-15 Blood Urea Nitrogen 21 9-23 mg/dL Creatinine 1.02 0.550-1.02 mg/dL Glomerular Filtration Rate Calc 58 >90 mL/min BUN/Creatinine Ratio 20.6 H 10.0-20.0 Serum Glucose 108 H 74-106 mg/dL Calcium Level 9.8 8.7-10.4 mg/dL Bilateral lower extremity venous duplex Clinical History: cp Comparison: None Findings: Duplex Doppler evaluation of the deep venous systems of both lower extremities from the common femoral veins to the popliteal veins including color Doppler and spectral/pulsed waveform analysis was performed. RIGHT SIDE: The common femoral vein demonstrates appropriate compressibility and waveform variability. There is thrombus in the greater saphenous superficial vein. There is noncompressible thrombus in the right superficial femoral vein, both the proximal and mid segments. vein demonstrates appropriate compressibility and waveform variability. The popliteal vein demonstrates appropriate compressibility and waveform variability. There is normal compressibility at the tibioperoneal trunk. LEFT SIDE: The common femoral vein demonstrates appropriate compressibility and waveform va riability. There is compressibility/patency of the great saphenous vein at the proximal thigh. The femoral vein demonstrates appropriate compressibility and waveform variability. The deep femoral vein demonstrates appropriate compressibility and waveform variability. The popliteal vein demonstrates appropriate compressibility and waveform variability. There is normal compressibility at the tibioperoneal trunk. Impression: 1. Deep vein thrombosis in the right superficial femoral vein. Thrombus in the greater saphenous (superficial ) vein. Reportedly, the patient has a history of right leg DVT however, there is no prior imaging available for comparison. 2. No evidence of DVT in the left lower extremity. CLINICAL HISTORY: sob TECHNIQUE: CT angiogram of the chest was performed with intravenous contrast. 3D MIP reconstructed images were created and archived on the PACS system. This exam was performed according to our departmental dose optimization program. Up-to-date CT equipment and radiation dose reduction techniques are utilized as appropriate. COMPARISON: None FINDINGS: Lower Neck: Unremarkable Axilla, Mediastinum and [place]: Small hiatal hernia. No thoracic lymphadenopathy Heart and Great Vessels: Mild cardiomegaly. No pericardial effusion thoracic aorta is patent and normal caliber. Common origin of the right brachiocephalic and left common carotid arteries, normal variant. Mild mixed atherosclerotic plaque in the thoracic aorta. There is saddle pulmonary embolism, pulmonary embolism in the distal main pulmonary artery, proximal right pulmonary artery, left pulmonary artery extending into the lobar, segmental, and subsegmental left lower lobe pulmonary arteries and into A few segmental and subsegmental left upper lobe pulmonary arteries. No right heart strain Airway, Lungs and Pleura: Trachea and central airways are patent. Bronchial wall thickening. Mosaic attenuation of the lungs. Mild scattered atelectasis scarring in both lungs. No airspace consolidation, pleural effusion, or pneumothorax. Chest Wall and Osseous Structures: Multilevel thoracic spondylosis. No destructive osseous lesion. Upper abdomen: Small hypodensities in the bilateral kidneys most of which are too small to characterize though may reflect cysts. There is mild hepatic steatosis. IMPRESSION: 1. Positive for saddle pulmonary embolism as well as pulmonary emboli extending into lobar, segmental, and subsegmental left lower lobe pulmonary arteries, and segmental and subsegmental left upper lobe pulmonary arteries. 2. No right heart strain. 3. Mosaic Attenuation of the lungs which could be small-vessel and small airways disease 4. Mild bronchial wall thickening which could be related to pulmonary edema or acute or chronic bronchitis 5. Mild cardiomegaly. 6. Small hiatal hernia. XY CHEST TWO VIEWS ROUTINE CLINICAL HISTORY: CP COMPARISON: 03/30/2023 TECHNIQUE: Frontal and lateral view of the chest was obtained FINDINGS: Lines and Tubes: None Lungs: No focal consolidation. Pleura: No effusion. No pneumothorax. Cardiomediastinal contours: Unremarkable Bones: No acute osseous abnormality. IMPRESSION: No acute cardiopulmonary disease. Assessment/Plan Assessment/Plan Assessment/Plan: Chest pain Saddle PE Leukocytosis labs Heparin drip CT chest Aspirin PT/PTT UA Chest x-ray D-dimer elevated EKG Troponin negative x3 Echo ordered UDS TSH Lipid panel Hemoglobin A1c IV antibiotics-doxycycline A.m. labs Ultrasound bilateral lower extremity CTA chest Antiemetics Pain management Cardiology consult Chronic hyperlipidemia Continue home medications History of asthma P.r.n. 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 Procedure Category Date Status Time Doxycycline PHA 05/08/24 Logged 100mg/100ml 07:45 Admit ADMIT 05/08/24 Transmitted 07:31 Code Status CODE 05/08/24 Transmitted 07:31 Vital Signs CHU 05/08/24 In Process 07:31 Remote Sensing Technologist CHU 05/08/24 In Process 07:31 Cardiac DIET 05/08/24 Transmitted Diet-2gna,Lofat,Lochol Breakfast Atorvastatin (Lipitor) PHA 05/08/24 Logged 22:00 Morphine Sulfate PHA 05/08/24 Logged Injection 07:45 Acetaminophen Tablet PHA 05/08/24 Logged (Tylenol Tablet) 07:45 Complete Blood Count LAB 05/09/24 Verified 04:00 Comprehensive LAB 05/09/24 Verified Metabolic Panel 04:00 Echo 2d Mode Cardiac US 05/08/24 Logged DOP 07:31 Nitroglycerin PHA 05/08/24 Logged Sublingual (Ntrostat 07:45 Ondansetron Hcl PHA 05/08/24 Logged (Zofran) 07:45 Electrocardigram EKG 05/09/24 Logged 04:00 Troponin-I Hs LAB 05/08/24 Logged 07:31 Cardiac CHU 05/08/24 In Process Rehabilitation - Outpa Nitroglycerin PHA 05/08/24 Logged Sublingual (Ntrostat 07:45 Morphine Sulfate PHA 05/08/24 Logged Injection 07:45 Stat Ekg For Chest [facility] 05/08/24 In Process Pain 07:31 Notify Of Changes [facility] 05/08/24 In Process From Base 07:31 Biscuit Maker For [facility] 05/08/24 In Process 24 Hours 07:31 Emergency Dysrhythmia [facility] 05/08/24 In Process Protocol 07:31 Rhythm Strips Once [facility] 05/08/24 In Process Every Shift 07:31 Oxygen By Nasal RT 05/08/24 Transmitted Cannula 07:31 Drug Screen LAB 05/08/24 Logged 07:31 Thyroid Stimulating LAB 05/08/24 Logged Hormone 07:31 Lipid Panel LAB 05/08/24 Logged 07:31 Hemoglobin A1c LAB 05/08/24 Logged 07:37 * Cardiology Consult CONS 05/08/24 Transmitted 07:37 Bilat Lower Dvt US 05/08/24 Logged 07:37 Albuterol Medneb PHA 05/08/24 Transmitted (Ventolin Medneb) 12:00 Albuterol Medneb PHA 05/08/24 Transmitted (Ventolin Medneb) 07:45 Ipratropium Medneb PHA 05/08/24 Transmitted (Atrovent Medneb) 12:00 Ipratropium Medneb PHA 05/08/24 Transmitted (Atrovent Medneb) 07:45 Levothyroxine Tablet PHA 05/08/24 Verified (Synthroid Tablet) 10:00 Montelukast Tablet PHA 05/08/24 Verified (Singulair Tablet) 10:00 Oxybutynin Chloride PHA 05/08/24 Verified Tablet (Ditropan Tab 10:00 (Nf) Potassium PHA 05/08/24 Verified Chloride (Klor-Con 10:00 (Nf) Simvastatin PHA 05/08/24 Verified 10:00 Date of Service: May 08, 2024 Billing Provider: WILFRED GRANADO Common Visit Codes: [id number] INP/OBS CARE (HIGH) WILFRED GRANADO May 08, 2024 07:42
[2024-05-08] MEDS ORDERED: NITROGLYCERIN 0.4 MG SL TAB SL PRN ×2 (07:45)
[2024-05-08] MEDS ORDERED: ACETAMINOPHEN 325 MG TAB PO PRN (07:45)
[2024-05-08] MEDS ORDERED: MORPHINE SULFATE 4 MG/ML SYR/VIAL IV PRN (07:45)
[2024-05-08] MEDS ORDERED: IPRATROPIUM BROM 0.5 MG/2.5ML INH SOL NEB PRN (07:45)
[2024-05-08] MEDS ORDERED: ONDANSETRON HCL 4 MG/2 ML VIAL IV PRN (07:45)
[2024-05-08] MEDS ORDERED: MORPHINE SULFATE INJ 2 MG/ml SYRG IV PRN (07:45)
[2024-05-08] MEDS ORDERED: ALBUTEROL SULF 2.5 MG/0.5ML(0.5%) NEB SOLN NEB PRN (07:45)
[2024-05-08] MEDS: LEVOTHYROXINE SODIUM 88 MCG TAB PO SCH (08:00)
[2024-05-08 08:08] LABS: Urine Bacteria FEW /hpf (None Seen); Urine Blood 1+ /uL (Negative); Urine Clarity Clear (Clear); Urine Color Light-Yellow (Yellow); Urine Protein, UAD TRACE (Negative); Urine Squamous Epithelial Cell FEW /hpf (<5); Urine Urobilinogen Normal (Negative); Urine WBC < 1 /HPF (0-5); Urine pH 6.5 (5.0-9.0)
[2024-05-08 08:11] LABS: Urine Specific Gravity > 1.050 (1.001-1.035)
[2024-05-08 08:21] LABS: Amphetamine Screen, Urine Neg (NEGATIVE); Barbiturate Scree,Urine Neg (NEGATIVE); Benzodiazephine Screen, Urine Neg (NEGATIVE); Cannabinoid Screen, Urine Neg (NEGATIVE); Cocaine Screen, Urine Neg (NEGATIVE); Opiate Scree,Urine Neg (NEGATIVE); Phencyclidine Screen, Urine Neg (NEGATIVE)
[2024-05-08 08:32] LABS: Triglycerides 74 mg/dL (< 150)
[2024-05-08 08:33] LABS: LDL Cholesterol 87 mg/dL (< 100)
[2024-05-08 08:34] LABS: Cholesterol 172 mg/dL (< 200)
[2024-05-08 09:00] LABS: HDL Cholesterol 67 mg/dL (40-59)
--- NOTE | 2024-05-08 09:21 | DVH ---
Bilateral lower extremity venous duplex Clinical History: cp Comparison: None Findings: Duplex Doppler evaluation of the deep venous systems of both lower extremities from the common femora l veins to the popliteal veins including color Doppler and spectral/pulsed waveform analysis was perf ormed. RIGHT SIDE: The common femoral vein demonstrates appropriate compressibility and waveform variability. There is thrombus in the greater saphenous superficial vein. There is noncompressible thrombus in the right superficial femoral vein, both the proximal and mid se gments. vein demonstrates appropriate compressibility and waveform variability. The popliteal vein demonstrates appropriate compressibility and waveform variability. There is normal compressibility at the tibioperoneal trunk. LEFT SIDE: The common femoral vein demonstrates appropriate compressibility and waveform variability. There is compressibility/patency of the great saphenous vein at the proximal thigh. The femoral vein demonstrates appropriate compressibility and waveform variability. The deep femoral vein demonstrates appropriate compressibility and waveform variability. The popliteal vein demonstrates appropriate compressibility and waveform variability. There is normal compressibility at the tibioperoneal trunk. Impression: 1. Deep vein thrombosis in the right superficial femoral vein. Thrombus in the greater saphenous (sup erficial ) vein. Reportedly, the patient has a history of right leg DVT however, there is no prior im aging available for comparison. 2. No evidence of DVT in the left lower extremity.
[2024-05-08] MEDS: OXYBUTYNIN CHL 5 MG TAB PO SCH (10:00)
[2024-05-08] MEDS: POTASSIUM CHL 10 Meq TABLET PO SCH (10:08)
[2024-05-08] MEDS: DOXYCYCLINE 100MG/100ML 100 ML IV SCH (10:08)
[2024-05-08] MEDS: ATORVASTATIN 20 MG TAB PO SCH ×2 (10:09→22:12)
[2024-05-08] MEDS: MONTELUKAST SODIUM 10 MG TAB PO SCH (10:09)
[2024-05-08 10:58] LABS: INR 1.01 (0.9-1.15); Partial Thromboplastin Time 21.9 SEC (24.5-34.5); Prothrombin Time 10.7 sec (9.3-11.8)
[2024-05-08] MEDS: ALBUTEROL SULF 2.5 MG/0.5ML(0.5%) NEB SOLN NEB SCH (11:20)
[2024-05-08] MEDS: IPRATROPIUM BROM 0.5 MG/2.5ML INH SOL NEB SCH (11:20)
--- NOTE | 2024-05-08 13:08 | DVHINCON2 ---
Date Seen: May 08, 2024 Referring Physician Hao Reason for Consultation Acute PE, SOB History of Present Illness 73-year-old female with PMH for arthritis, CKD, GERD, HLD, previous DVT 2021 not on anticoagulation therapy any longer presents to the hospital with increased shortness of breath. Patient states she has been having hard time doing her daily activities and walking her dogs and noted to have increased shortness of breath. Patient started to also have some chest tightness associated with shortness of breath. Upon evaluation in the ER patient noted to have D-dimer 13.96, troponin negative x4, lower extremity ultrasound showing DVT to right superficial femoral vein and thrombus in greater saphenous vein, CT angiogram showing positive for saddle PE as well as pulmonary emboli extending into left lower lobe, no right heart strain noted, mild cardiomegaly. EKG reviewed and showed sinus tachycardia at 101 beats per minute, PACs, no acute ST abnormality Past Medical History As above Past Surgical History No previous cardiac surgeries Family History No pertinent family cardiac history Social History Denies alcohol, tobacco, or illicit drug use Allergies: Coded Allergies: Carisoprodol (Verified Allergy, Unknown, 12/25/15) Penicillins (Unverified Allergy, Unknown, 12/25/15) Sulfa Drugs (Unverified Allergy, Unknown, 12/25/15) Home Meds Reported Medications Potassium Chloride (Klor-Con M10) 10 Meq Tab, 10 MEQ PO DAILY, TAB 09/25/23 Albuterol Sulfate (VENTOLIN MDI) 90 Mcg Ih, 90 MCG IN PRN, INH 09/25/23 Montelukast Sodium (MONTELUKAST SODIUM) 10 Mg Tab, 10 MG OR DAILY, TAB 09/25/23 Oxybutynin Chloride (Oxybutynin Chloride) 5 Mg Tab, 5 MG PO DAILY, TAB 09/25/23 Levothyroxine Sodium (Levothyroxine Sodium) 88 Mcg Tab, 88 MCG PO DAILY, TAB 09/25/23 Tramadol Hcl (Tramadol Hcl) 50 Mg Tab, 50 MG PO PRN, TAB 09/25/23 Simvastatin (Simvastatin) 40 Mg Tab, 40 MG PO DAILY, TAB 09/25/23 Diclofenac Sodium (Topical) (Diclofenac Sodium) 1 % Gel, 1 % TD PRN, GEL 09/25/23 Current Medications Current Medications Medications (Trade) Dose Ordered Sig/Shira Route PRN Reason Start Time Stop Time Status Last Admin Heparin Sodium/ Dextrose 250 ml @ 18 mls/hr [id number] IV 05/08/24 04:00 05/08/24 12:25 DC 05/08/24 04:48 Doxycycline Hyclate 100 ml @ 50 mls/hr Q12H IV 05/08/24 07:45 05/08/24 10:08 Atorvastatin Calcium (Lipitor) 40 mg HS PO 05/08/24 22:00 Morphine Sulfate 2 mg Q30MP PRN IV FOR CHEST PAIN 05/08/24 07:45 05/08/24 07:59 DC Acetaminophen (Tylenol Tablet) 650 mg Q6HP PRN PO MILD PAIN (1-3 PAIN SCALE) 05/08/24 07:45 Nitroglycerin (Ntrostat Sublingual) 0.4 mg Q5MINP PRN SL FOR CHEST PAIN 05/08/24 07:45 05/08/24 07:59 DC Ondansetron HCl (Zofran) 4 mg Q4HP PRN IV NAUSEA / VOMITING 05/08/24 07:45 Nitroglycerin (Ntrostat Sublingual) 0.4 mg Q5MINP PRN SL FOR CHEST PAIN 05/08/24 07:45 Morphine Sulfate 2 mg Q30M PRN IV FOR CHEST PAIN 05/08/24 07:45 Albuterol (Ventolin Medneb) 2.5 mg Q6HWA NEB 05/08/24 12:00 05/08/24 11:20 Albuterol (Ventolin Medneb) 2.5 mg Q2HPRN PRN NEB SHORTNESS OF BREATH 05/08/24 07:45 Ipratropium [place] (Atrovent Medneb) 0.5 mg Q6HWA NEB 05/08/24 12:00 05/08/24 11:20 Ipratropium [place] (Atrovent Medneb) 0.5 mg Q2HPRN PRN NEB SHORTNESS OF BREATH 05/08/24 07:45 Levothyroxine Sodium (Synthroid Tablet) 88 mcg QAM PO 05/08/24 08:00 05/08/24 08:00 Montelukast Sodium (Singulair Tablet) 10 mg DAILY PO 05/08/24 10:00 05/08/24 10:09 Oxybutynin Chloride (Ditropan Tablet) 5 mg DAILY PO 05/08/24 10:00 05/08/24 10:00 Potassium Chloride (Klor-Con Tablet) 10 meq DAILY PO 05/08/24 10:00 05/08/24 10:08 Atorvastatin Calcium (Lipitor) 20 mg DAILY PO 05/08/24 10:00 05/08/24 10:09 Heparin Sodium/ Dextrose 250 ml @ 21 mls/hr [id number] IV 05/08/24 12:30 05/08/24 12:40 Review of Systems Constitutional: No: Fever, Chills, Sweats, Weakness, Malaise, Other Eyes: No: Pain, Vision change, Conjunctivae inflammation, Eyelid inflammation, Other, Redness ENT: No: Ear pain, Ear discharge, Nose pain, Nose discharge, Nose congestion, Mouth pain, Mouth swelling, Throat pain, Throat swelling, Other Respiratory: No: Cough, Dry, , Wheezing, Hemoptysis, Pleuritic Pain, Sputum, Wheezing, Other positive: Shortness of breath, SOB with exertion Cardiovascular: ; No: Chest Pain Palpitations, Orthopnea, Paroxysmal Noc. Dyspnea, Edema, Lt Headedness, Other positive: Chest tightness Gastrointestinal: No: Nausea, Vomiting, Abdominal Pain, Diarrhea, Constipation, Melena, Hematochezia, Other Genitourinary: No Dysuria, No Frequency, No Incontinence, No Hematuria, No Retention, No Other Musculoskeletal: neck pain; No: other, shoulder pain, arm pain, back pain, hand pain, leg pain, foot pain Skin: No: Rash, Lesions, Jaundice, Bruising, Other Neurological: Other (Dizziness, headache.); No: Weakness, Numbness, Incoordination, Change in speech, Confusion, Seizures Vital Signs Vital Signs Date Time Temp Pulse Resp B/P (MAP) Pulse Ox O2 Delivery O2 Flow Rate FiO2 05/08/24 12:00 79 16 150/81 (104) 99 05/08/24 11:20 Room Air* 0 21 05/08/24 08:00 98.0 98.0 Physical Exam General appearance: Patient is well-developed, well-nourished, in no acute distress. HEENT: Exam shows: Normocephalic, atraumatic, PERRLA, EOMI Neck: Supple, no bruits Chest: Equal chest excursion bilaterally. Breath sounds normal-no rales or wheezes. Heart: Rhythm: Regular rate; tachycardia no murmur or gallop Abdomen: Exam shows: Soft, nontender, nondistended Musculoskeletal: No clubbing, no cyanosis, no lower extremity edema Dermatology: Skin warm, moist. Neurological: Exam shows: Alert and oriented x4, normal speech Available prior records, labs, EKG, rhythm strips reviewed and interpreted Labs/Diagnostic Data Labs Test 05/08/24 10:36 05/08/24 07:52 05/08/24 02:52 05/08/24 02:49 Range/Units Prothrombin Time 10.7 9.3-11.8 sec Prothrombin Time INR 1.01 0.9-1.15 Activated Partial Thromboplast Time 21.9 L 24.5-34.5 SEC Urine Color Light-yellow Yellow Urine Clarity Clear Clear Urine pH 6.5 5.0-9.0 Urine Specific [place] > 1.050 H 1.001-1.035 Urine Protein Trace H Negative Urine Ketones 1+ H Negative Urine Blood 1+ H Negative /uL Urine Nitrite Negative Negative Urine Bilirubin Negative Negative Urine Urobilinogen Normal Negative mg/dL Urine Leukocyte Esterase Negative Negative /uL Urine RBC 1 0 - 4 /hpf Urine Microscopic WBC < 1 0-5 /HPF Urine Squamous Epithelial Cells Few <5 /hpf Urine Bacteria Few H None Seen /hpf Urine Glucose Normal Normal mg/dL Urine Opiates Screen Neg NEGATIVE Urine Fentanyl Screen Neg NEGATIVE Urine Barbiturates Screen Neg NEGATIVE Urine Phencyclidine Screen Neg NEGATIVE Urine Amphetamines Screen Neg NEGATIVE Urine Benzodiazepines Screen Neg NEGATIVE Urine Cocaine Screen Neg NEGATIVE Urine Cannabinoids Screen Neg NEGATIVE Troponin I High Sensitivity < 3 L </=34 ng/L Triglycerides Level 74 < 150 mg/dL Cholesterol Level 172 < 200 mg/dL LDL Cholesterol 87 < 100 mg/dL HDL Cholesterol 67 H 40-59 mg/dL Thyroid Stimulating Hormone (TSH) 0.80 0.55-4.78 uIU/mL White Blood Count 12.3 H 4.4-10.8 10^3/uL Red Blood Count 4.79 4.0-5.20 10^6/uL Hemoglobin 13.9 12.2-16.2 g/dL Hematocrit 41.7 36.0-46.0 % Mean Corpuscular Volume 87.0 80.0-100.0 fL Mean Corpuscular Hemoglobin 29.1 28.0-32.0 pg Mean Corpuscular Hemoglobin Concent 33.4 32.0-36.0 g/dL Red Cell Distribution Width 13.1 11.8-14.3 % Platelet Count 203 140-450 10^3/uL Mean Platelet Volume 7.9 6.9-10.8 fL Neutrophils (%) (Auto) 60.3 37.0-80.0 % Lymphocytes (%) (Auto) 28.1 10.0-50.0 % Monocytes (%) (Auto) 9.2 0.0-12.0 % Eosinophils (%) (Auto) 1.9 0.0-7.0 % Basophils (%) (Auto) 0.5 0.0-2.0 % Neutrophils # (Auto) 7.4 1.6-8.6 10 ^3/uL Lymphocytes # (Auto) 3.4 0.4-5.4 10 ^3/uL Monocytes # (Auto) 1.1 0-1.3 10 ^3/uL Eosinophils # (Auto) 0.2 0-0.8 10 ^3/uL Basophils # (Auto) 0.1 0-0.2 10 ^3/uL Nucleated Red Blood Cells 0.1 % Hemoglobin A1c 5.5 <5.7 % A1C B-Type Natriuretic Peptide 9.47 0-100 pg/mL Test 05/07/24 20:00 Range/Units D-Dimer, Quantitative 13.96 H 0.0-0.49 mg/L FEU Sodium Level 141 136-145 mmol/L Potassium Level 4.4 3.5-5.1 mmol/L Chloride Level 105 98-107 mmol/L Carbon Dioxide Level 29 20-31 mmol/L Anion Gap 7 5-15 Blood Urea Nitrogen 21 9-23 mg/dL Creatinine 1.02 0.550-1.02 mg/dL Glomerular Filtration Rate Calc 58 >90 mL/min BUN/Creatinine Ratio 20.6 H 10.0-20.0 Serum Glucose 108 H 74-106 mg/dL Calcium Level 9.8 8.7-10.4 mg/dL Assessment Acute saddle PE Chest pain RLE DVT Shortness of breath Plan/Recommendation * CT angiogram showing saddle PE. No right heart strain noted on CT. Follow up echo. Positive right lower extremity DVT. Continue on heparin drip. Plan to transition to DOAC upon discharge. 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 No need for mechanical thrombectomy at this time. If breathing or condition worsens recommend IR consult for possible thrombectomy. * Chest pain atypical. More pleuritic. Troponins negative. EKG negative for acute ischemic changes. ACS ruled out. Follow up echo. * Breathing stable on room air. Case Discussed with Dr Sylvester. Continue on anticoagulation therapy with heparin drip. Transition to DOAC he is upon discharge. Follow up echo. Critical care, time spent: 40 minutes This medical document was created using an electronic medical record system with voice recognition software and computerized dictation system. Although this document has been carefully reviewed, there might still be some phonetic and typographical errors. Occasional wrong-word or ``sound-alike substitutions may have occurred due to the inherent limitations of voice recognition software. These areas are purely typographical due to imperfections of the software programs and do not reflect any compromise in the patient's medical care. Please read the chart carefully and recognize, using context, where these substitutions have occurred. Thank you for allowing me to participate in the management of this patient. The treatment plan was discussed with and agreed upon by patient/family including requesting consultants and ordering of imaging/procedures. Plan discussed with: Patient NYHA Physical activity limitations: NA Date of Service: May 08, 2024 Billing Provider: ROBERTA GARCIA Cardiology Common Codes: [id number] INP/OBS CARE (High), [id number] CARE 30-74 MIN ROBERTA GARCIA May 08, 2024 13:08
--- NOTE | 2024-05-08 14:41 | DVHPN2 ---
Assessment/Plan Assessment/Plan progress note 73 F with pmh of DVT (provoked 2 years [employer], on eliquis 5 weeks) admitted for chest pain, found to have saddle PE. hx of melanoma treated with excision. Physical exam alert oriented x3 morbidly obese clear breath soudns s1 s2 rrr no murmur abdomen soft nontender LE edema R>L labs ekg imaging reviewed assessment and plan saddle PE unprovoked DVT CKD asthma not in exacerbation start anticoagulation telemetry, not needing O2 supp at the moment resume home meds nebs PRN cardio consult, +- intervention for thrombectomy diet cardiac dvt ppx on heparin Plan discussed with: Patient Date of Service: May 08, 2024 Billing Provider: BROWN SHANKAR MD Common Visit Codes: [id number] INP/OBS CARE(HIGH) BROWN SHANKAR MD May 08, 2024 14:40
[2024-05-08 19:44] LABS: INR 1.08 (0.9-1.15); Prothrombin Time 11.4 sec (9.3-11.8)
[2024-05-08 19:48] LABS: Partial Thromboplastin Time > 139.0 SEC (24.5-34.5)
--- NOTE | 2024-05-08 21:20 | DVHINCON2 ---
Date Seen: May 08, 2024 Referring Physician Hao Reason for Consultation Acute PE, SOB History of Present Illness This is a 73-year-old female with a PMH of arthritis, CKD, GERD, HLD, previous DVT 2021 not on anticoagulation therapy any longer who presented to the ED with c/o increased shortness of breath. Patient states she has been having hard time doing her daily activities and walking her dogs and noted to have increased shortness of breath. Patient started to also have some chest tightness associated with shortness of breath. D-dimer 13.96, troponin negative x4. Lower extremity ultrasound showed DVT to right superficial femoral vein and thrombus in greater saphenous vein. CT angiogram returned positive for saddle PE as well as pulmonary emboli extending into left lower lobe, no right heart strain noted, mild cardiomegaly. EKG reviewed and showed sinus tachycardia at 101 beats per minute, PACs, no acute ST abnormality. Patient was admitted to the hospital. I am asked to consult on this patient. Past Medical History As above Past Surgical History No previous cardiac surgeries Allergies: Coded Allergies: Carisoprodol (Verified Allergy, Unknown, 12/25/15) Penicillins (Unverified Allergy, Unknown, 12/25/15) Sulfa Drugs (Unverified Allergy, Unknown, 12/25/15) Home Meds Reported Medications Potassium Chloride (Klor-Con M10) 10 Meq Tab, 10 MEQ PO DAILY, TAB 09/25/23 Albuterol Sulfate (VENTOLIN MDI) 90 Mcg Ih, 90 MCG IN PRN, INH 09/25/23 Montelukast Sodium (MONTELUKAST SODIUM) 10 Mg Tab, 10 MG OR DAILY, TAB 09/25/23 Oxybutynin Chloride (Oxybutynin Chloride) 5 Mg Tab, 5 MG PO DAILY, TAB 09/25/23 Levothyroxine Sodium (Levothyroxine Sodium) 88 Mcg Tab, 88 MCG PO DAILY, TAB 09/25/23 Tramadol Hcl (Tramadol Hcl) 50 Mg Tab, 50 MG PO PRN, TAB 09/25/23 Simvastatin (Simvastatin) 40 Mg Tab, 40 MG PO DAILY, TAB 09/25/23 Diclofenac Sodium (Topical) (Diclofenac Sodium) 1 % Gel, 1 % TD PRN, GEL 09/25/23 Current Medications Current Medications Medications (Trade) Dose Ordered Sig/Shira Route PRN Reason Start Time Stop Time Status Last Admin Heparin Sodium/ Dextrose 250 ml @ 18 mls/hr [id number] IV 05/08/24 04:00 05/08/24 12:25 DC 05/08/24 04:48 Doxycycline Hyclate 100 ml @ 50 mls/hr Q12H IV 05/08/24 07:45 05/08/24 10:08 Atorvastatin Calcium (Lipitor) 40 mg HS PO 05/08/24 22:00 Morphine Sulfate 2 mg Q30MP PRN IV FOR CHEST PAIN 05/08/24 07:45 05/08/24 07:59 DC Acetaminophen (Tylenol Tablet) 650 mg Q6HP PRN PO MILD PAIN (1-3 PAIN SCALE) 05/08/24 07:45 Nitroglycerin (Ntrostat Sublingual) 0.4 mg Q5MINP PRN SL FOR CHEST PAIN 05/08/24 07:45 05/08/24 07:59 DC Ondansetron HCl (Zofran) 4 mg Q4HP PRN IV NAUSEA / VOMITING 05/08/24 07:45 05/08/24 14:42 DC Nitroglycerin (Ntrostat Sublingual) 0.4 mg Q5MINP PRN SL FOR CHEST PAIN 05/08/24 07:45 05/08/24 14:42 DC Morphine Sulfate 2 mg Q30M PRN IV FOR CHEST PAIN 05/08/24 07:45 05/08/24 14:42 DC Albuterol (Ventolin Medneb) 2.5 mg Q6HWA NEB 05/08/24 12:00 05/08/24 11:20 Albuterol (Ventolin Medneb) 2.5 mg Q2HPRN PRN NEB SHORTNESS OF BREATH 05/08/24 07:45 Ipratropium [place] (Atrovent Medneb) 0.5 mg Q6HWA NEB 05/08/24 12:00 05/08/24 11:20 Ipratropium [place] (Atrovent Medneb) 0.5 mg Q2HPRN PRN NEB SHORTNESS OF BREATH 05/08/24 07:45 Levothyroxine Sodium (Synthroid Tablet) 88 mcg QAM PO 05/08/24 08:00 05/08/24 08:00 Montelukast Sodium (Singulair Tablet) 10 mg DAILY PO 05/08/24 10:00 05/08/24 10:09 Oxybutynin Chloride (Ditropan Tablet) 5 mg DAILY PO 05/08/24 10:00 05/08/24 10:00 Potassium Chloride (Klor-Con Tablet) 10 meq DAILY PO 05/08/24 10:00 05/08/24 10:08 Atorvastatin Calcium (Lipitor) 20 mg DAILY PO 05/08/24 10:00 05/08/24 14:08 DC 05/08/24 10:09 Heparin Sodium/ Dextrose 250 ml @ 21 mls/hr [id number] IV 05/08/24 12:30 05/08/24 12:40 Review of Systems Constitutional: No: Fever, Chills, Sweats, Weakness, Malaise, Other Eyes: No: Pain, Vision change, Conjunctivae inflammation, Eyelid inflammation, Other, Redness ENT: No: Ear pain, Ear discharge, Nose pain, Nose discharge, Nose congestion, Mouth pain, Mouth swelling, Throat pain, Throat swelling, Other Respiratory: No: Cough, Dry, , Wheezing, Hemoptysis, Pleuritic Pain, Sputum, Wheezing, Other positive: Shortness of breath, SOB with exertion Cardiovascular: ; No: Chest Pain Palpitations, Orthopnea, Paroxysmal Noc. Dyspnea, Edema, Lt Headedness, Other positive: Chest tightness Gastrointestinal: No: Nausea, Vomiting, Abdominal Pain, Diarrhea, Constipation, Melena, Hematochezia, Other Genitourinary: No Dysuria, No Frequency, No Incontinence, No Hematuria, No Retention, No Other Musculoskeletal: neck pain; No: other, shoulder pain, arm pain, back pain, hand pain, leg pain, foot pain Skin: No: Rash, Lesions, Jaundice, Bruising, Other Neurological: Other (Dizziness, headache.); No: Weakness, Numbness, Incoordination, Change in speech, Confusion, Seizures Vital Signs Vital Signs Date Time Temp Pulse Resp B/P (MAP) Pulse Ox O2 Delivery O2 Flow Rate FiO2 05/08/24 14:00 87 16 129/73 (91) 99 05/08/24 11:20 Room Air* 0 21 05/08/24 08:00 98.0 98.0 Physical Exam GENERAL: Awake, alert, oriented. LUNGS: Clear. CARDIOVASCULAR: Tachycardic. ABDOMEN: Soft. Labs/Diagnostic Data Labs Test 05/08/24 10:36 05/08/24 07:52 05/08/24 02:52 05/08/24 02:49 Range/Units Prothrombin Time 10.7 9.3-11.8 sec Prothrombin Time INR 1.01 0.9-1.15 Activated Partial Thromboplast Time 21.9 L 24.5-34.5 SEC Urine Color Light-yellow Yellow Urine Clarity Clear Clear Urine pH 6.5 5.0-9.0 Urine Specific [place] > 1.050 H 1.001-1.035 Urine Protein Trace H Negative Urine Ketones 1+ H Negative Urine Blood 1+ H Negative /uL Urine Nitrite Negative Negative Urine Bilirubin Negative Negative Urine Urobilinogen Normal Negative mg/dL Urine Leukocyte Esterase Negative Negative /uL Urine RBC 1 0 - 4 /hpf Urine Microscopic WBC < 1 0-5 /HPF Urine Squamous Epithelial Cells Few <5 /hpf Urine Bacteria Few H None Seen /hpf Urine Glucose Normal Normal mg/dL Urine Opiates Screen Neg NEGATIVE Urine Fentanyl Screen Neg NEGATIVE Urine Barbiturates Screen Neg NEGATIVE Urine Phencyclidine Screen Neg NEGATIVE Urine Amphetamines Screen Neg NEGATIVE Urine Benzodiazepines Screen Neg NEGATIVE Urine Cocaine Screen Neg NEGATIVE Urine Cannabinoids Screen Neg NEGATIVE Troponin I High Sensitivity < 3 L </=34 ng/L Triglycerides Level 74 < 150 mg/dL Cholesterol Level 172 < 200 mg/dL LDL Cholesterol 87 < 100 mg/dL HDL Cholesterol 67 H 40-59 mg/dL Thyroid Stimulating Hormone (TSH) 0.80 0.55-4.78 uIU/mL White Blood Count 12.3 H 4.4-10.8 10^3/uL Red Blood Count 4.79 4.0-5.20 10^6/uL Hemoglobin 13.9 12.2-16.2 g/dL Hematocrit 41.7 36.0-46.0 % Mean Corpuscular Volume 87.0 80.0-100.0 fL Mean Corpuscular Hemoglobin 29.1 28.0-32.0 pg Mean Corpuscular Hemoglobin Concent 33.4 32.0-36.0 g/dL Red Cell Distribution Width 13.1 11.8-14.3 % Platelet Count 203 140-450 10^3/uL Mean Platelet Volume 7.9 6.9-10.8 fL Neutrophils (%) (Auto) 60.3 37.0-80.0 % Lymphocytes (%) (Auto) 28.1 10.0-50.0 % Monocytes (%) (Auto) 9.2 0.0-12.0 % Eosinophils (%) (Auto) 1.9 0.0-7.0 % Basophils (%) (Auto) 0.5 0.0-2.0 % Neutrophils # (Auto) 7.4 1.6-8.6 10 ^3/uL Lymphocytes # (Auto) 3.4 0.4-5.4 10 ^3/uL Monocytes # (Auto) 1.1 0-1.3 10 ^3/uL Eosinophils # (Auto) 0.2 0-0.8 10 ^3/uL Basophils # (Auto) 0.1 0-0.2 10 ^3/uL Nucleated Red Blood Cells 0.1 % Hemoglobin A1c 5.5 <5.7 % A1C B-Type Natriuretic Peptide 9.47 0-100 pg/mL Test 05/07/24 20:00 Range/Units D-Dimer, Quantitative 13.96 H 0.0-0.49 mg/L FEU Sodium Level 141 136-145 mmol/L Potassium Level 4.4 3.5-5.1 mmol/L Chloride Level 105 98-107 mmol/L Carbon Dioxide Level 29 20-31 mmol/L Anion Gap 7 5-15 Blood Urea Nitrogen 21 9-23 mg/dL Creatinine 1.02 0.550-1.02 mg/dL Glomerular Filtration Rate Calc 58 >90 mL/min BUN/Creatinine Ratio 20.6 H 10.0-20.0 Serum Glucose 108 H 74-106 mg/dL Calcium Level 9.8 8.7-10.4 mg/dL Assessment Acute saddle PE. Chest pain. RLE DVT. Shortness of breath. Plan/Recommendation I agree with your ongoing assessment and care of plan. Patient has been seen by Lam Logan NP on my behalf, him and I discussed the plan with the patient. Telemetry reviewed. Echocardiogram. Continue heparin drip. Plan to transition to DOAC upon discharge. 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 No need for mechanical thrombectomy at this time. If breathing or condition worsens recommend IR consult for possible thrombectomy. Additional plan as per the hospital course. Plan discussed with: Patient NYHA Physical activity limitations: NA Date of Service: May 08, 2024 Billing Provider: FELICITA SMITH MD Cardiology Common Codes: [id number] INP/OBS CARE (High), [id number] CARE 30-74 MIN FELICITA SMITH MD May 08, 2024 16:41
[2024-05-09] VITALS (11 sets, daily range): BP systolic 100–146; BP diastolic 45–72; PULSE 66–87; RESP 16–17; TEMP 36.7; O2SAT 95–100
--- NOTE | 2024-05-09 00:53 | DVHSR ---
APPROVED REPORT EXAM: LIMITED Two-dimensional and M-mode echocardiogram with Doppler and color Doppler. Blood Pressure: 132/66 mmHg INDICATION Chest Pain RISK FACTORS Obesity: Height: 5' 1", Weight: 218 DIMENSIONS LVDd3.8 (3.8-5.7cm)LA (2D)3.9 (1.9-4.0cm)Aortic Root3.1 (2.0-3.7cm) LVDs2.7 (2.5-4.0cm)LA (MM) (1.9-4.0cm)Aortic Cusp Exc2.0 (1.5-2.0cm) EF (%) 56.0 (55-70%)Rt. Atrium3.5 (1.9-4.0cm)Asc. Aorta cm IVSd0.9 (0.7-1.1cm)RV (D) (1.8-2.4cm) PWd1.0 (0.7-1.1cm) Mitral Valve MitralMitral Stenosis E wave1.00m/sMV Mean GR.mmHg A wave1.20m/sMV Peak GR.mmHg E/A ratio0.82D MVAcm2 Aortic Valve Aortic ValveAortic Stenosis V10.80m/Zbigniew Mean GR.5mmHg V21.40m/Zbigniew Peak GR.8mmHg LVOT Diameter2.3 (1.8-2.4cm)Doppler AVA2.37cm2 Pulmonic Valve V20.70m/s Other Information Quality : Technically LimitedRhythm : Technically limited study due to body habitus. Conclusion LV EJECTION FRACTION IS 65% NORMAL VALVES NO EFFUSION NORMAL RV FUNCTION
[2024-05-09 03:26] LABS: Basophils # (auto) 0 10 ^3/uL (0-0.2); Basophils % (auto) 0.3 % (0.0-2.0); Eosinophils # (auto) 0.2 10 ^3/uL (0-0.8); Eosinophils % (auto) 1.4 % (0.0-7.0); Hematocrit 40.5 % (36.0-46.0); Hemoglobin 13.3 g/dL (12.2-16.2); Lymphocytes # (auto) 3.2 10 ^3/uL (0.4-5.4); Lymphocytes % (auto) 28.3 % (10.0-50.0); Mean Corpuscular Hemoglobin 28.6 pg (28.0-32.0); Mean Corpuscular Hgb Conc. 32.8 g/dL (32.0-36.0); Mean Corpuscular Volume 87.2 fL (80.0-100.0); Monocytes # (auto) 1.1 10 ^3/uL (0-1.3); Monocytes % (auto) 9.4 % (0.0-12.0); Neutrophils # (auto) 6.9 10 ^3/uL (1.6-8.6); Neutrophils % (auto) 60.6 % (37.0-80.0); Nucleated Red Blood Cells % 0.1 %; Platelet Count (auto) 208 10^3/uL (140-450); Red Blood Cells 4.65 10^6/uL (4.0-5.20); Red Cell Distribution Width 13.7 % (11.8-14.3); White Blood Cell 11.4 10^3/uL (4.4-10.8)
[2024-05-09 03:46] LABS: Alanine Aminotransferase 13 U/L (7-40); Albumin 4.4 g/dL (3.2-4.8); Alkaline Phosphatase 79 U/L (46-116); Anion Gap 8 (5-15); Aspartate Aminotransferase 19 U/L (13-40); BUN/Creatinine Ratio 12.3 (10.0-20.0); Bilirubin, Total 0.5 mg/dL (0.2-1.0); Blood Urea Nitrogen 10 mg/dL (9-23); Calcium 10.1 mg/dL (8.7-10.4); Carbon Dioxide 24 mmol/L (20-31); Potassium 3.9 mmol/L (3.5-5.1); Sodium 139 mmol/L (136-145)
[2024-05-09 03:51] LABS: Chloride 107 mmol/L (98-107); Glucose 123 mg/dL (74-106)
[2024-05-09 03:59] LABS: INR 1.11 (0.9-1.15); Prothrombin Time 11.6 sec (9.3-11.8)
[2024-05-09 04:05] LABS: Partial Thromboplastin Time > 139.0 SEC (24.5-34.5)
[2024-05-09] MEDS: HEPARIN DRIP/D5W 100UNITS/ML 250 ML IV SCH (05:07)
[2024-05-09] MEDS ORDERED: FLUT0.05 NAS (06:11)
--- NOTE | 2024-05-09 07:18 | ECG ---
[facility] Test Date: 2024-05-07 Test Time: 20:43:40 Pat Name: SHERIE GOMEZ Department: ER Room: 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
--- NOTE | 2024-05-09 07:19 | ECG ---
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
[2024-05-09 07:37] LABS: COVID19 ANTIGEN SOFIA FIA NEGATIVE (NEGATIVE)
[2024-05-09] MEDS ORDERED: APIX5TAB PO (09:00)
--- NOTE | 2024-05-09 09:37 | DVHPN2 ---
Consult Progress Note Subjective Patient reports: Feels better Review of Systems: CVS:Normal (Denies chest pain, palpitations), RESPIRATORY:Abnormal (Breathing continues to improve, patient did have mild shortness of breath with exertion) Objective vital signs Vital Sign Date Time Temp Pulse Resp B/P (MAP) Pulse Ox O2 Delivery O2 Flow Rate FiO2 05/09/24 08:20 97.7 83 16 146/72 (96) 97 97.7 05/09/24 08:13 Room Air* 0 21 Total Intake and Output 05/08/24 05/08/24 05/09/24 15:00 23:00 07:00 Intake Total 100 ml 100 ml 450 ml Output Total 1300 ml Balance 100 ml 100 ml -850 ml medications Current Medications Medications Dose Ordered Sig/Shira Route Start Time Stop Time Status Last Admin Dose Admin Doxycycline Hyclate 100 ml @ 50 mls/hr Q12H IV 05/08/24 07:45 05/09/24 06:54 50 MLS/HR Atorvastatin Calcium 40 mg HS PO 05/08/24 22:00 05/08/24 22:12 40 MG Acetaminophen 650 mg Q6HP PRN PO 05/08/24 07:45 Albuterol 2.5 mg Q6HWA NEB 05/08/24 12:00 05/09/24 08:13 2.5 MG Albuterol 2.5 mg Q2HPRN PRN NEB 05/08/24 07:45 Ipratropium [place] 0.5 mg Q6HWA NEB 05/08/24 12:00 05/09/24 08:13 0.5 MG Ipratropium [place] 0.5 mg Q2HPRN PRN NEB 05/08/24 07:45 Levothyroxine Sodium 88 mcg QAM PO 05/08/24 08:00 05/09/24 06:54 88 MCG Montelukast Sodium 10 mg DAILY PO 05/08/24 10:00 05/08/24 10:09 10 MG Oxybutynin Chloride 5 mg DAILY PO 05/08/24 10:00 05/08/24 10:00 5 MG Potassium Chloride 10 meq DAILY PO 05/08/24 10:00 05/08/24 10:08 10 MEQ Heparin Sodium/ Dextrose 250 ml @ 15 mls/hr [id number] IV 05/09/24 05:05 05/09/24 05:07 15 MLS/HR Examination: CVS:Normal (Telemetry reviewed consistent with sinus rhythm at 90 beats per minute, no arrhythmias or events noted overnight) laboratory and microbiology Laboratory Tests 05/09/24 02:54 Test 05/09/24 02:54 Range/Units Serum Glucose 123 H 74-106 mg/dL Problem List/Assessment/Plan Problem List/Assessment/Plan Assessment Acute saddle PE Chest pain RLE DVT Shortness of breath Plan/Recommendation * CT angiogram showing saddle PE. No right heart strain noted on CT. Follow up echo. Positive right lower extremity DVT. Continue on heparin drip. Plan to transition to DOAC upon discharge. 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 No need for mechanical thrombectomy at this time. If breathing or condition worsens recommend IR consult for possible thrombectomy. * Chest pain atypical. More pleuritic. Troponins negative. EKG negative for acute ischemic changes. ACS ruled out. Follow up echo with normal EF, no right heart strain noted.. * Breathing stable on room air. Case Discussed with Dr Sylvester. Continue on anticoagulation therapy with heparin drip. Transition to DOAC upon discharge. Patient will likely need to stay on permanent anticoagulation therapy due to recurrent DVT now with PE. Normal EF on echo, no right heart strain noted. Patient is stable from Cardiology standpoint. We will continue following as needed. Critical care, time spent: 40 minutes This medical document was created using an electronic medical record system with voice recognition software and computerized dictation system. Although this document has been carefully reviewed, there might still be some phonetic and typographical errors. Occasional wrong-word or ``sound-alike substitutions may have occurred due to the inherent limitations of voice recognition software. These areas are purely typographical due to imperfections of the software programs and do not reflect any compromise in the patient's medical care. Please read the chart carefully and recognize, using context, where these substitutions have occurred. Thank you for allowing me to participate in the management of this patient. The treatment plan was discussed with and agreed upon by patient/family including requesting consultants and ordering of imaging/procedures. Plan discussed with: Patient Date of Service: May 09, 2024 Billing Provider: ROBERTA GARCIA Common Visit Codes: [id number] INP/OBS CARE(HIGH) ROBERTA GARCIA May 09, 2024 09:37
[2024-05-09] MEDS ORDERED: DOXY1CAP57 PO (11:25)
[2024-05-09 12:36] LABS: INR 1.17 (0.9-1.15); Partial Thromboplastin Time 56.6 SEC (24.5-34.5); Prothrombin Time 12.2 sec (9.3-11.8)
--- NOTE | 2024-05-09 12:59 | DVHDS2 ---
Discharge Summary Date of Admission May 08, 2024 at 07:31 Date of Discharge: May 09, 2024 Labs/Diagnostic Data: Laboratory Results Test 05/09/24 12:07 05/09/24 02:54 05/08/24 22:04 05/08/24 07:52 Prothrombin Time 12.2 sec (9.3-11.8) Prothrombin Time INR 1.17 (0.9-1.15) Activated Partial Thromboplast Time 56.6 SEC (24.5-34.5) White Blood Count 11.4 10^3/uL (4.4-10.8) Red Blood Count 4.65 10^6/uL (4.0-5.20) Hemoglobin 13.3 g/dL (12.2-16.2) Hematocrit 40.5 % (36.0-46.0) Mean Corpuscular Volume 87.2 fL (80.0-100.0) Mean Corpuscular Hemoglobin 28.6 pg (28.0-32.0) Mean Corpuscular Hemoglobin Concent 32.8 g/dL (32.0-36.0) Red Cell Distribution Width 13.7 % (11.8-14.3) Platelet Count 208 10^3/uL (140-450) Mean Platelet Volume 8.1 fL (6.9-10.8) Neutrophils (%) (Auto) 60.6 % (37.0-80.0) Lymphocytes (%) (Auto) 28.3 % (10.0-50.0) Monocytes (%) (Auto) 9.4 % (0.0-12.0) Eosinophils (%) (Auto) 1.4 % (0.0-7.0) Basophils (%) (Auto) 0.3 % (0.0-2.0) Neutrophils # (Auto) 6.9 10 ^3/uL (1.6-8.6) Lymphocytes # (Auto) 3.2 10 ^3/uL (0.4-5.4) Monocytes # (Auto) 1.1 10 ^3/uL (0-1.3) Eosinophils # (Auto) 0.2 10 ^3/uL (0-0.8) Basophils # (Auto) 0 10 ^3/uL (0-0.2) Nucleated Red Blood Cells 0.1 % Sodium Level 139 mmol/L (136-145) Potassium Level 3.9 mmol/L (3.5-5.1) Chloride Level 107 mmol/L (98-107) Carbon Dioxide Level 24 mmol/L (20-31) Anion Gap 8 (5-15) Blood Urea Nitrogen 10 mg/dL (9-23) Creatinine 0.81 mg/dL (0.550-1.02) Glomerular Filtration Rate Calc 77 mL/min (>90) BUN/Creatinine Ratio 12.3 (10.0-20.0) Serum Glucose 123 mg/dL (74-106) Calcium Level 10.1 mg/dL (8.7-10.4) Total Bilirubin 0.5 mg/dL (0.2-1.0) Aspartate Amino Transferase (AST) 19 U/L (13-40) Alanine Aminotransferase (ALT) 13 U/L (7-40) Alkaline Phosphatase 79 U/L (46-116) Total Protein 7.0 g/dL (5.7-8.2) Albumin 4.4 g/dL (3.2-4.8) SARS-CoV-2 Antigen (Rapid) Negative (NEGATIVE) Urine Color Light-yellow (Yellow) Urine Clarity Clear (Clear) Urine pH 6.5 (5.0-9.0) Urine Specific [place] > 1.050 (1.001-1.035) Urine Protein Trace (Negative) Urine Ketones 1+ (Negative) Urine Blood 1+ /uL (Negative) Urine Nitrite Negative (Negative) Urine Bilirubin Negative (Negative) Urine Urobilinogen Normal mg/dL (Negative) Urine Leukocyte Esterase Negative /uL (Negative) Urine RBC 1 /hpf (0 - 4) Urine Microscopic WBC < 1 /HPF (0-5) Urine Squamous Epithelial Cells Few /hpf (<5) Urine Bacteria Few /hpf (None Seen) Urine Glucose Normal mg/dL (Normal) Urine Opiates Screen Neg (NEGATIVE) Urine Fentanyl Screen Neg (NEGATIVE) Urine Barbiturates Screen Neg (NEGATIVE) Urine Phencyclidine Screen Neg (NEGATIVE) Urine Amphetamines Screen Neg (NEGATIVE) Urine Benzodiazepines Screen Neg (NEGATIVE) Urine Cocaine Screen Neg (NEGATIVE) Urine Cannabinoids Screen Neg (NEGATIVE) Test 05/08/24 02:52 05/08/24 02:49 05/07/24 20:00 Troponin I High Sensitivity < 3 ng/L (</=34) Triglycerides Level 74 mg/dL (< 150) Cholesterol Level 172 mg/dL (< 200) LDL Cholesterol 87 mg/dL (< 100) HDL Cholesterol 67 mg/dL (40-59) Thyroid Stimulating Hormone (TSH) 0.80 uIU/mL (0.55-4.78) Hemoglobin A1c 5.5 % A1C (<5.7) B-Type Natriuretic Peptide 9.47 pg/mL (0-100) D-Dimer, Quantitative 13.96 mg/L FEU (0.0-0.49) Other Laboratory Tests 05/09/24 02:54 Brief Hx & Hospital Course: 73 F with pmh of DVT (provoked 2 years LENS MOUNTER, on eliquis 5 weeks) admitted for chest pain, found to have saddle PE and DVT. hx of melanoma treated with excision. patient was started on heparin drip. no RV strain on echo, comfortable saturating well on room air. Seen and evaluated by cardiology, not candidate for thrombectomy at this time. Patient will be discharged on eliquis and to follow up with cardiology, pulmonary and PCP. Condition at Discharge: Good Final Diagnosis/Problems List saddle PE, not candidate for thrombectomy unprovoked DVT CKD asthma not in exacerbation Discharge Disposition: Home Discharge Instruct/Medications Diet: Cardiac 2g Na,low cholest Activity: No Restrictions, As Tolerated Follow Up/Referral: cardiology pulmonary PCP Medications: eliquis 10mg twice daily for 7 days, followed by 5mg twice daily indefinitely 39 Discharge Statement: "Patient was advised to return to the ER or call 911 if any headaches, dizziness, shortness of breath, chest pain, abdominal pain, bleeding, fevers, or worsening of medical condition. Patient was counseled about treatment plan, medications, possible side effects, patientverbalized understanding. All questions were answered to the best of my ability. This discharge took greater then 30 minutes in planning, reviewing documentation, counseling the patient, and discussing with other team members." ASSESSMENT ASSESSMENT Assessment DVT with saddle PE, not candidate for mechanical thrombectomy Date of Service: May 09, 2024 Billing Provider: BROWN SHANKAR MD Common Visit Codes: [id number] DISCH DAY >30min BROWN SHANKAR MD May 09, 2024 12:59
[2024-05-09] MEDS: APIXABAN 5 MG TAB PO SCH (16:04)
--- NOTE | 2024-05-09 20:23 | DVHINCON2 ---
Date of service: May 09, [address] Arpan Shankar Reason for Consultation Saddle pulmonary embolism History of Present Illness A 73-year-old woman with past medical history of asthma, hyperlipidemia, CKD, arthritis, GERD, and thyroid disease, who presented to ED on 05/08/24 with c/o chest pain, cough, and SOB x2 days. Patient reported that she was walking when the pain suddenly started; complains of 7/10 pain, stabbing, constant and nonradiating. Patient denied any recent sick contacts, any recent illnesses, recent trauma or injury, abdominal pain, nausea, vomiting, diarrhea, fever, chills, lightheadedness, dizziness, or weakness. Patient reports that 2 years ago she had been taking Eliquis for right leg DVT, but is now off the medication. Patient was admitted for further care and pulmonary consultation is requested for evaluation and management of saddle PE. Review of Systems: 14-point review of systems negative unless otherwise noted above. Past Medical History: Hyperlipidemia, asthma, CKD, arthritis, GERD, arthritis, and hypothyroidism Past Surgical History: Right wrist ganglion surgery, appendectomy, hysterectomy, tonsillectomy, and C- section Medications: Reviewed. Allergies: Carisoprodol Penicillin Sulfa drugs. Family History: Cancer (Both mom and dad with lung cancer) Social History: Nonsmoker. No alcohol or illicit drug use. Family History: Patient reports no known family medical history. Allergies: Coded Allergies: Carisoprodol (Verified Allergy, Unknown, 12/25/15) Penicillins (Unverified Allergy, Unknown, 12/25/15) Sulfa Drugs (Unverified Allergy, Unknown, 12/25/15) Home Meds Active Scripts Doxycycline Monohydrate (Doxycycline Monohydrate) 100 Mg Cap, 1 CAP PO BID for 7 Days, #14 CAP Prov:ARPAN SHANKAR MD 05/09/24 Apixaban Base (ELIQUIS) 5 Mg Tab, 10 MG PO BID for 7 Days, #28 TAB 10MG BID X 7 DAYS THEN 5MG PO BID FOR AT LEAST 6 MONTHS FOR DVT/PE TREATMENT Prov:ARPAN SHANKAR MD 05/09/24 Apixaban Base (ELIQUIS) 5 Mg Tab, 5 MG PO BID for 30 Days, #60 TAB Prov:ARPAN SHANKAR MD 05/09/24 Reported Medications Fluticasone Propionate (Fluticasone Propionate) 0.05 % Cre, 50 MCG ADRIENNE for 30 Days, MCG 05/09/24 Potassium Chloride (Klor-Con M10) 10 Meq Tab, 10 MEQ PO DAILY, TAB 09/25/23 Albuterol Sulfate (VENTOLIN MDI) 90 Mcg Ih, 90 MCG IN PRN, INH 09/25/23 Montelukast Sodium (MONTELUKAST SODIUM) 10 Mg Tab, 10 MG OR DAILY, TAB 09/25/23 Oxybutynin Chloride (Oxybutynin Chloride) 5 Mg Tab, 5 MG PO DAILY, TAB 09/25/23 Levothyroxine Sodium (Levothyroxine Sodium) 88 Mcg Tab, 88 MCG PO DAILY, TAB 09/25/23 Tramadol Hcl (Tramadol Hcl) 50 Mg Tab, 50 MG PO PRN, TAB 09/25/23 Simvastatin (Simvastatin) 40 Mg Tab, 40 MG PO DAILY, TAB 09/25/23 Diclofenac Sodium (Topical) (Diclofenac Sodium) 1 % Gel, 1 % TD PRN, GEL 09/25/23 Current Medications Current Medications Medications (Trade) Dose Ordered Sig/Shira Route PRN Reason Start Time Stop Time Status Last Admin Atorvastatin Calcium (Lipitor) 40 mg HS PO 05/08/24 22:00 05/09/24 18:57 DC 05/08/24 22:12 Heparin Sodium/ Dextrose 250 ml @ 18 mls/hr [id number] IV 05/08/24 21:00 05/09/24 04:14 DC 05/09/24 01:01 Heparin Sodium/ Dextrose 250 ml @ 15 mls/hr [id number] IV 05/09/24 05:05 05/09/24 11:25 DC 05/09/24 05:07 Apixaban (Eliquis) 10 mg BID PO 05/09/24 15:00 05/09/24 18:57 DC 05/09/24 16:04 Apixaban (Eliquis) 5 mg BID PO 05/09/24 22:00 05/09/24 14:56 DC Vital Signs Vital Signs Date Time Temp Pulse Resp B/P (MAP) Pulse Ox O2 Delivery O2 Flow Rate FiO2 05/09/24 18:17 36.7 05/09/24 16:25 66 16 100/45 (63) 96 05/09/24 11:12 Room Air 0.0 05/09/24 11:12 21 Physical Exam Gen.: Patient lying in bed in no apparent distress. On room air. Head: Normocephalic, atraumatic. Eyes: EOMI/PERRLA. Ears: Normal hearing. Normal anatomy. Neck/trachea: Trachea midline, supple. Nose: Normal external anatomy. Mouth: Moist mucous membranes. Chest: Decreased air entry bilaterally. No wheezing or rhonchi. Cardiovascular: Positive S1, positive S2. Regular rate and rhythm. Abdomen: Positive bowel sounds in all 4 quadrants. Soft, non-tender, non- distended. : Deferred. Rectal: Deferred. Skin: Warm, dry. Intact. Extremities: 2+ radial pulses bilaterally. No lower extremity edema. Neuro: Awake, alert, oriented x3. No gross motor or sensory deficits. Cranial nerves II through XII intact. Gait not assessed. Labs/Diagnostic Data Labs Test 05/09/24 12:07 05/09/24 02:54 05/08/24 22:04 05/08/24 07:52 Range/Units Prothrombin Time 12.2 H 9.3-11.8 sec Prothrombin Time INR 1.17 H 0.9-1.15 Activated Partial Thromboplast Time 56.6 H 24.5-34.5 SEC White Blood Count 11.4 H 4.4-10.8 10^3/uL Red Blood Count 4.65 4.0-5.20 10^6/uL Hemoglobin 13.3 12.2-16.2 g/dL Hematocrit 40.5 36.0-46.0 % Mean Corpuscular Volume 87.2 80.0-100.0 fL Mean Corpuscular Hemoglobin 28.6 28.0-32.0 pg Mean Corpuscular Hemoglobin Concent 32.8 32.0-36.0 g/dL Red Cell Distribution Width 13.7 11.8-14.3 % Platelet Count 208 140-450 10^3/uL Mean Platelet Volume 8.1 6.9-10.8 fL Neutrophils (%) (Auto) 60.6 37.0-80.0 % Lymphocytes (%) (Auto) 28.3 10.0-50.0 % Monocytes (%) (Auto) 9.4 0.0-12.0 % Eosinophils (%) (Auto) 1.4 0.0-7.0 % Basophils (%) (Auto) 0.3 0.0-2.0 % Neutrophils # (Auto) 6.9 1.6-8.6 10 ^3/uL Lymphocytes # (Auto) 3.2 0.4-5.4 10 ^3/uL Monocytes # (Auto) 1.1 0-1.3 10 ^3/uL Eosinophils # (Auto) 0.2 0-0.8 10 ^3/uL Basophils # (Auto) 0 0-0.2 10 ^3/uL Nucleated Red Blood Cells 0.1 % Sodium Level 139 136-145 mmol/L Potassium Level 3.9 3.5-5.1 mmol/L Chloride Level 107 98-107 mmol/L Carbon Dioxide Level 24 20-31 mmol/L Anion Gap 8 5-15 Blood Urea Nitrogen 10 # 9-23 mg/dL Creatinine 0.81 0.550-1.02 mg/dL Glomerular Filtration Rate Calc 77 >90 mL/min BUN/Creatinine Ratio 12.3 10.0-20.0 Serum Glucose 123 H 74-106 mg/dL Calcium Level 10.1 8.7-10.4 mg/dL Total Bilirubin 0.5 0.2-1.0 mg/dL Aspartate Amino Transferase (AST) 19 13-40 U/L Alanine Aminotransferase (ALT) 13 7-40 U/L Alkaline Phosphatase 79 46-116 U/L Total Protein 7.0 5.7-8.2 g/dL Albumin 4.4 3.2-4.8 g/dL SARS-CoV-2 Antigen (Rapid) Negative NEGATIVE Urine Color Light-yellow Yellow Urine Clarity Clear Clear Urine pH 6.5 5.0-9.0 Urine Specific [place] > 1.050 H 1.001-1.035 Urine Protein Trace H Negative Urine Ketones 1+ H Negative Urine Blood 1+ H Negative /uL Urine Nitrite Negative Negative Urine Bilirubin Negative Negative Urine Urobilinogen Normal Negative mg/dL Urine Leukocyte Esterase Negative Negative /uL Urine RBC 1 0 - 4 /hpf Urine Microscopic WBC < 1 0-5 /HPF Urine Squamous Epithelial Cells Few <5 /hpf Urine Bacteria Few H None Seen /hpf Urine Glucose Normal Normal mg/dL Urine Opiates Screen Neg NEGATIVE Urine Fentanyl Screen Neg NEGATIVE Urine Barbiturates Screen Neg NEGATIVE Urine Phencyclidine Screen Neg NEGATIVE Urine Amphetamines Screen Neg NEGATIVE Urine Benzodiazepines Screen Neg NEGATIVE Urine Cocaine Screen Neg NEGATIVE Urine Cannabinoids Screen Neg NEGATIVE Test 05/08/24 02:52 05/08/24 02:49 05/07/24 20:00 Range/Units Troponin I High Sensitivity < 3 L </=34 ng/L Triglycerides Level 74 < 150 mg/dL Cholesterol Level 172 < 200 mg/dL LDL Cholesterol 87 < 100 mg/dL HDL Cholesterol 67 H 40-59 mg/dL Thyroid Stimulating Hormone (TSH) 0.80 0.55-4.78 uIU/mL Hemoglobin A1c 5.5 <5.7 % A1C B-Type Natriuretic Peptide 9.47 0-100 pg/mL D-Dimer, Quantitative 13.96 H 0.0-0.49 mg/L FEU Microbiology Date/Time Source Procedure Growth Status 05/08/24 09:25 Urine - Catheterized Urine Culture - Preliminary Resulted Assessment Impression: Chest pain Saddle pulmonary embolism Leukocytosis Asthma Chronic kidney disease Hyperlipidemia Unprovoked DVT Obesity Bmi 41.2 Plan: Supplemental oxygen PRN Titrate to keep O2 sats above 92%. Venous duplex of BLE on 05/08/24 revealed deep vein thrombosis in the right superficial femoral vein. Thrombus in the greater saphenous (superficial) vein. Reportedly, patient has a history of right leg DVT; however, there is no prior imaging available for comparison. CT angio on 05/07/24: Positive for saddle pulmonary embolism as well as pulmonary emboli extending into lobar, segmental, and subsegmental left lower lobe pulmonary arteries, and segmental and subsegmental left upper lobe pulmonary arteries. No right heart strain. [place] Attenuation of the lungs which could be small-vessel and small airways disease Mild bronchial wall thickening which could be related to pulmonary edema or acute or chronic bronchitis Mild cardiomegaly. Small hiatal hernia. On heparin drip Eliquis PO BID. Patient not a candidate for mechanical thrombectomy Continue bronchodilators. Singulair Continue antibiotics Monitor renal function. Monitor electrolytes. Supplement as necessary. Monitor ins and outs. Potassium supplementation DVT prophylaxis. Prognosis: Poor given patient's multiple co-morbidities. Rest of plan per hospitalist and other consultants. Thank you, Dr. Shankar, for allowing me to participate in this patient's care. Further recommendations will depend on the patient's clinical course. Please do not hesitate to contact me if you have any questions or concerns. This medical document was created using an electronic medical record system with Dragon computerized dictation system. Although these documentations are being carefully reviewed, there may still be some phonetic and typographical changes. The errors are purely typographical, due to imperfection on the software program, and do not reflect any compromise in the patient's medical care. Plan discussed with: Patient, Other (RN/MD Shankar) TEJAL ADAN MD May 09, 2024 20:23
--- NOTE | 2024-05-09 21:58 | DVHPN2 ---
Consult Progress Note Subjective Patient reports: Feels better Review of Systems: CVS:Normal, RESPIRATORY:Abnormal Other Systems: Patient was seen and evaluated in follow up. Patient c/o minimal SOB with exertion. Patient does report feeling better. Normal EF on echo, no right heart strain noted. [place] reviewed. Objective vital signs Vital Sign Date Time Temp Pulse Resp B/P (MAP) Pulse Ox O2 Delivery O2 Flow Rate FiO2 05/09/24 13:00 97.6 80 17 120/68 (85) 96 97.6 05/09/24 11:12 Room Air 0.0 05/09/24 11:12 21 Total Intake and Output 05/08/24 05/08/24 05/09/24 15:00 23:00 07:00 Intake Total 100 ml 100 ml 450 ml Output Total 1300 ml Balance 100 ml 100 ml -850 ml medications Current Medications Medications Dose Ordered Sig/Shira Route Start Time Stop Time Status Last Admin Dose Admin Doxycycline Hyclate 100 ml @ 50 mls/hr Q12H IV 05/08/24 07:45 05/09/24 06:54 50 MLS/HR Atorvastatin Calcium 40 mg HS PO 05/08/24 22:00 05/08/24 22:12 40 MG Acetaminophen 650 mg Q6HP PRN PO 05/08/24 07:45 Albuterol 2.5 mg Q6HWA NEB 05/08/24 12:00 05/09/24 11:12 2.5 MG Albuterol 2.5 mg Q2HPRN PRN NEB 05/08/24 07:45 Ipratropium [place] 0.5 mg Q6HWA NEB 05/08/24 12:00 05/09/24 11:12 0.5 MG Ipratropium [place] 0.5 mg Q2HPRN PRN NEB 05/08/24 07:45 Levothyroxine Sodium 88 mcg QAM PO 05/08/24 08:00 05/09/24 06:54 88 MCG Montelukast Sodium 10 mg DAILY PO 05/08/24 10:00 05/09/24 10:18 10 MG Oxybutynin Chloride 5 mg DAILY PO 05/08/24 10:00 05/09/24 10:18 5 MG Potassium Chloride 10 meq DAILY PO 05/08/24 10:00 05/09/24 10:18 10 MEQ Apixaban 10 mg BID PO 05/09/24 15:00 05/16/24 14:59 05/09/24 16:04 10 MG Examination: GENERAL:Normal, HEENT:Normal, NECK:Normal, LUNGS:Normal, CVS:Normal, ABDOMEN:Normal, SKIN:Normal laboratory and microbiology Laboratory Tests 05/09/24 02:54 Test 05/09/24 02:54 Range/Units Serum Glucose 123 H 74-106 mg/dL Problem List/Assessment/Plan Problem List/Assessment/Plan Acute saddle PE. Chest pain. RLE DVT. Shortness of breath. Plan/Recommendation Continued all current supportive medical care. Patient has been seen by Lam Logan NP on my behalf, him and I discussed the plan with the patient. Continue on anticoagulation therapy with heparin drip. Transition to DOAC upon discharge. Patient will likely need to stay on permanent anticoagulation therapy due to recurrent DVT now with PE. Normal EF on echo, no right heart strain noted. Patient is stable from Cardiology standpoint. Additional plan as per the hospital course. Plan discussed with: Patient Date of Service: May 09, 2024 Billing Provider: FELICITA SMITH MD Cardiology Common Codes: [id number] [facility] CARE(High FELICITA SMITH MD May 09, 2024 16:16
[2024-05-09] MEDS ORDERED: APIXABAN 5 MG TAB PO SCH (22:00)
== END 2024-05-09 18:40 | disposition home or self-care (01) | DRG 176 ==
LOC: ER 19:45 → TELE 05-08 07:31 → TELE-WESTW 05-08 23:27
DX: I26.92 Saddle embolus of pulmonary artery without acute cor pulmonale (principal); Z68.41 Body mass index [BMI] 40.0-44.9, adult; I82.411 Acute embolism and thrombosis of right femoral vein; I82.811 Embolism and thrombosis of superficial veins of right lower extremity; D72.829 Elevated white blood cell count, unspecified; Z20.822 Contact with and (suspected) exposure to COVID-19; N18.9 Chronic kidney disease, unspecified; J45.909 Unspecified asthma, uncomplicated; K21.9 Gastro-esophageal reflux disease without esophagitis; E66.01 Morbid (severe) obesity due to excess calories; E78.5 Hyperlipidemia, unspecified; E03.9 Hypothyroidism, unspecified; Z80.1 Family history of malignant neoplasm of trachea, bronchus and lung; Z79.01 Long term (current) use of anticoagulants; Z88.0 Allergy status to penicillin; Z90.710 Acquired absence of both cervix and uterus; Z85.820 Personal history of malignant melanoma of skin
CPT/HCPCS: 36415; 71046; 71275; 80048; 80053; 80061; 80307; 81001; 83036; 83880; 84443; 84484; 85025; 85379; 85610; 85730; 87086; 87426; 93005; 93306; 93970; 94640; 96365; 96366; 96375; 99291; G0378

== ENCOUNTER 2024-06-01 19:39 | Emergency (ER) | payer MEDICAID ==
[~2024-06-01] VITALS: Ht 160 cm; Wt 100.9 kg
[~2024-06-01 19:39] MED LIST changes: +APIX5TAB PO; +DOXY1CAP57 PO; +FLUT0.05 NAS
[2024-06-01 20:13] LABS: Basophils # (auto) 0.1 10 ^3/uL (0-0.2); Eosinophils # (auto) 0.3 10 ^3/uL (0-0.8); Eosinophils % (auto) 3.8 % (0.0-7.0); Hematocrit 40.5 % (36.0-46.0); Hemoglobin 13.3 g/dL (12.2-16.2); Lymphocytes # (auto) 4.1 10 ^3/uL (0.4-5.4); Lymphocytes % (auto) 45.6 % (10.0-50.0); Mean Corpuscular Hemoglobin 28.7 pg (28.0-32.0); Mean Corpuscular Hgb Conc. 32.9 g/dL (32.0-36.0); Mean Corpuscular Volume 87.2 fL (80.0-100.0); Monocytes # (auto) 0.8 10 ^3/uL (0-1.3); Monocytes % (auto) 9.5 % (0.0-12.0); Neutrophils # (auto) 3.6 10 ^3/uL (1.6-8.6); Neutrophils % (auto) 40.1 % (37.0-80.0); Platelet Count (auto) 231 10^3/uL (140-450); Red Blood Cells 4.64 10^6/uL (4.0-5.20); Red Cell Distribution Width 13.2 % (11.8-14.3); White Blood Cell 8.9 10^3/uL (4.4-10.8)
--- NOTE | 2024-06-01 20:28 | ED.PDOC ---
Musculoskeletal HPI Comments 73 y/o F, with PMHX of arthritis, asthma, DVT's, COPD, GERD, and HLD presents to the ED for CC of upper extremity pain. Patient states, that she has been experiencing left distal tricep pain x4 days. Patient endorses concern, as she was recently DC from [facility] on 05/08/24 and was told to have DVT in her leg. Patient denies musculoskeletal pain, fall injury, numbness, weakness, or limited range of motion. No other symptoms or modifying factors at this time. Chief Complaint: Upper Extremity Time Seen by MD: 20:05 Primary Care Provider: none Reviewed Notes: Nurses Notes, Medications, Allergies Allergies: Coded Allergies: Carisoprodol (Verified Allergy, Unknown, 12/25/15) Penicillins (Unverified Allergy, Unknown, 12/25/15) Sulfa Drugs (Unverified Allergy, Unknown, 12/25/15) Home Meds Active Scripts Doxycycline Monohydrate (Doxycycline Monohydrate) 100 Mg Cap, 1 CAP PO BID for 7 Days, #14 CAP Prov:BROWN SHANKAR MD 05/09/24 Apixaban Base (ELIQUIS) 5 Mg Tab, 10 MG PO BID for 7 Days, #28 TAB 10MG BID X 7 DAYS THEN 5MG PO BID FOR AT LEAST 6 MONTHS FOR DVT/PE TREATMENT Prov:BROWN SHANKAR MD 05/09/24 Apixaban Base (ELIQUIS) 5 Mg Tab, 5 MG PO BID for 30 Days, #60 TAB Prov:BROWN SHANKAR MD 05/09/24 Reported Medications Fluticasone Propionate (Fluticasone Propionate) 0.05 % Cre, 50 MCG ADRIENNE for 30 Days, MCG 05/09/24 Potassium Chloride (Klor-Con M10) 10 Meq Tab, 10 MEQ PO DAILY, TAB 09/25/23 Albuterol Sulfate (VENTOLIN MDI) 90 Mcg Ih, 90 MCG IN PRN, INH 09/25/23 Montelukast Sodium (MONTELUKAST SODIUM) 10 Mg Tab, 10 MG OR DAILY, TAB 09/25/23 Oxybutynin Chloride (Oxybutynin Chloride) 5 Mg Tab, 5 MG PO DAILY, TAB 09/25/23 Levothyroxine Sodium (Levothyroxine Sodium) 88 Mcg Tab, 88 MCG PO DAILY, TAB 09/25/23 Tramadol Hcl (Tramadol Hcl) 50 Mg Tab, 50 MG PO PRN, TAB 09/25/23 Simvastatin (Simvastatin) 40 Mg Tab, 40 MG PO DAILY, TAB 09/25/23 Diclofenac Sodium (Topical) (Diclofenac Sodium) 1 % Gel, 1 % TD PRN, GEL 09/25/23 Information Source: Patient Mode of Arrival: Ambulatory Location: Left Extremity Location: Elbow Timing: Days Prehospital treatment: None Severity: Mild Able to Move Extremity: Yes Bear Weight: Fully Pain: Moderate Mechanism: Spontaneous Circumstances: Spontaneous Onset of Symptoms: Spontaneous Symptoms: Pain Last Tetanus: Unknown Associated signs and symptoms: Elbow pain Past Medical History PAST MEDICAL HISTORY: Arthritis, Asthma, CKF, GERD, High Lipids, Thyroid Surgical History: Appendectomy, Hysterectomy, Tonsillectomy QA AUTOMATION ENGINEER History: No Pertinent QA AUTOMATION ENGINEER History Family History Family History: Reviewed,noncontributory to illness, Family hx of Cancer Social History Smoker: Non-Smoker Alcohol: Denies ETOH Use Drugs: Denies Drug Use Lives In: Home Constitutional: denies: chills, diaphoresis, fatigue, fever, malaise, sweats, weakness, others EENTM: denies: blurred vision, double vision, ear bleeding, ear discharge, ear drainage, ear pain, ear ringing, eye pain, eye redness, hearing loss, mouth pa in, mouth swelling, nasal discharge, nose bleeding, nose congestion, nose pain, photophobia, tearing, throat pain, throat swelling, voice changes, others Respiratory: denies: cough, hemoptysis, orthopnea, SOB at rest, shortness of breath, SOB with excertion, stridor, wheezing, others Cardiovascular: denies: chest pain, dizzy spells, diaphoresis, Dyspnea on exertion, edema, irregular heart beat, left arm pain, lightheadedness, palpitations, PND, syncope, others Gastrointestinal: denies: abdomen distended, abdominal pain, blood streaked bowels, constipated, diarrhea, dysphagia, difficulty swallowing, hematemesis, melena, nausea, poor appetite, poor fluid intake, rectal bleeding, rectal pain, vomiting, others Genitourinary: denies: abnormal vagina bleeding, burning, dyspareunia, dysuria, flank pain, frequency, hematuria, incontinence, pain, , vagina discharge, urgency, others Neurological: denies: dizziness, fainting, headache, left sided numbness, left sided weakness, numbness, paresthesia, pre-existing deficit, right sided numbness, right sided weakness, seizure, speech problems, tingling, tremors, weakness, others Musculoskeletal: reports: others (left arm pain); denies: back pain, gout, joint pain, joint swelling, muscle pain, muscle stiffness, neck pain Integumetry: denies: bruises, change in color, change in hair/nails, dryness, laceration, lesions, lumps, rash, wounds, others Allergic/Immunocompromised: denies: Difficulty Healing, Frequent Infections, Hives, Itching, others Hematologic/Lymphatic: denies: anemia, blood clots, easy bleeding, easy bruising, swollen glands, others Endocrine: denies: excessive hunger, excessive sweating, excessive thirst, excessive urination, flushing, intolerance to cold, intolerance to heat, unexplained weight gain, unexplained weight loss, others Psychiatric: denies: anxiety, bipolar disorder, depression, hopeless, panic disorder, schizophrenia, sleepless, suicidal, others All Other Systems: Reviewed and Negative Physical Exam General Appearance: No Apparent Distress, Normal HEENT: Normal ENT Inspection, Pharynx Normal, TMs Normal Neck: Full Range of Motion, Non-Tender, Normal, Normal Inspection Respiratory: Chest Non-Tender, Lungs Clear, No Accessory Muscle Use, No Respiratory Distress, Normal Breath Sounds Cardiovascular: No Edema, No JVD, No Murmur, No Gallop, Normal Peripheral Pulses, Regular Rate/Rhythm Breast Exam: Deferred Gastrointestinal: No Organomegaly, Non Tender, No Pulsatile Mass, Normal Bowel Sounds, Soft Genitalia: Deferred Pelvic: Deferred Rectal: Deferred Extremities: No calf tenderness, Normal capillary refill, Normal inspection, Normal range of motion, Non-tender, No pedal edema Musculoskeletal : Location: Left Extremity Location: Elbow Apperance: Other (distal tricep bruise) Neurologic: Alert, 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 Was a procedure done?: No Differential Diagnosis EXT Differential Diagnosis: Deep Vein Thrombosis, Strain, Bursitis X-Ray, Labs, Meds, VS Vital Signs Date Time Temp Pulse Resp B/P (MAP) Pulse Ox O2 Delivery O2 Flow Rate FiO2 06/01/24 19:58 98.1 75 17 144/70 (94) 96 Lab Test 06/01/24 20:04 Range/Units White Blood Count 8.9 4.4-10.8 10^3/uL Red Blood Count 4.64 4.0-5.20 10^6/uL Hemoglobin 13.3 12.2-16.2 g/dL Hematocrit 40.5 36.0-46.0 % Mean Corpuscular Volume 87.2 80.0-100.0 fL Mean Corpuscular Hemoglobin 28.7 28.0-32.0 pg Mean Corpuscular Hemoglobin Concent 32.9 32.0-36.0 g/dL Red Cell Distribution Width 13.2 11.8-14.3 % Platelet Count 231 140-450 10^3/uL Mean Platelet Volume 8.0 6.9-10.8 fL Neutrophils (%) (Auto) 40.1 37.0-80.0 % Lymphocytes (%) (Auto) 45.6 10.0-50.0 % Monocytes (%) (Auto) 9.5 0.0-12.0 % Eosinophils (%) (Auto) 3.8 0.0-7.0 % Basophils (%) (Auto) 1.0 0.0-2.0 % Neutrophils # (Auto) 3.6 1.6-8.6 10 ^3/uL Lymphocytes # (Auto) 4.1 0.4-5.4 10 ^3/uL Monocytes # (Auto) 0.8 0-1.3 10 ^3/uL Eosinophils # (Auto) 0.3 0-0.8 10 ^3/uL Basophils # (Auto) 0.1 0-0.2 10 ^3/uL Nucleated Red Blood Cells 0.0 % D-Dimer, Quantitative 1.41 H 0.0-0.49 mg/L FEU Sodium Level 140 136-145 mmol/L Potassium Level 4.1 3.5-5.1 mmol/L Chloride Level 104 98-107 mmol/L Carbon Dioxide Level 29 20-31 mmol/L Anion Gap 7 5-15 Blood Urea Nitrogen 18 9-23 mg/dL Creatinine 1.10 H 0.550-1.02 mg/dL Glomerular Filtration Rate Calc 53 >90 mL/min BUN/Creatinine Ratio 16.4 10.0-20.0 Serum Glucose 90 74-106 mg/dL Calcium Level 9.8 8.7-10.4 mg/dL Total Bilirubin 0.2 0.2-1.0 mg/dL Aspartate Amino Transferase (AST) 22 13-40 U/L Alanine Aminotransferase (ALT) 20 7-40 U/L Alkaline Phosphatase 84 46-116 U/L Total Protein 7.0 5.7-8.2 g/dL Albumin 4.6 3.2-4.8 g/dL X-Ray, Labs, Meds, VS Comment IMAGING: X-RAYS AND CT SCANS WERE REVIEWED AND INTERPRETED BY THIS PROVIDER, IMAGING SHOWS NO FRACTURES AND NO PATHOLOGICAL DISEASE. PENDING RADIOLOGY REVIEW. LABORATORY: LABS REVIEWED AND INTERPRETED BY THIS PROVIDER. NO SIGNIFICANT ABNORMALITIES NOTED. PATIENT HAS PRIOR MEDICAL VISITS REVIEWED. MED RECONCILIATION PERFORMED VITAL SIGNS REVIEWED Time of 1ST Reevaluation: 20:35 Reevaluation 1ST: Unchanged Patient Education/Counseling: Diagnosis, Treatment, Need For Follow Up (PATIENT ADVISED TO FOLLOW-UP IN THE EMERGENCY ROOM IN THE NEXT 24 TO 48 HOURS IF SYMPTOMS DO NOT IMPROVE. ADVISED FOLLOW-UP WITH PCP IN THE NEXT 3 TO 5 DAYS. PATIENT VERBALIZED UNDERSTANDING. ) Family Education/Counseling: No Family Present Departure 1 Departure Time of Disposition: 22:50 Impression: Primary Impression: Contusion of left arm Qualified Codes: S40.022A - Contusion of left upper arm, initial encounter Disposition: HOME / SELF CARE / HOMELESS Condition: Fair Discharged With: Self Critical Care Note Critical Care Time?: No Stability Stability form required: No Heart Score Heart Score: Heart Score Response (Comments) Value History N/A 0 EKG N/A 0 Age N/A 0 Risk Factors N/A 0 Troponin N/A 0 Total 0 I personally scribed for MEENU BLOCK ([email or web address]) on 06/01/24 at 20:28. Electronically submitted by Analia Thorpe ([email or web address]). MEENU BLOCK Jun 01, 2024 20:28
[2024-06-01 20:37] LABS: Alanine Aminotransferase 20 U/L (7-40); Alkaline Phosphatase 84 U/L (46-116); Calcium 9.8 mg/dL (8.7-10.4); Carbon Dioxide 29 mmol/L (20-31); Chloride 104 mmol/L (98-107); Glucose 90 mg/dL (74-106)
[2024-06-01 20:38] LABS: Albumin 4.6 g/dL (3.2-4.8); Anion Gap 7 (5-15); Aspartate Aminotransferase 22 U/L (13-40); BUN/Creatinine Ratio 16.4 (10.0-20.0); Blood Urea Nitrogen 18 mg/dL (9-23); Potassium 4.1 mmol/L (3.5-5.1); Sodium 140 mmol/L (136-145)
[2024-06-01 20:39] LABS: Bilirubin, Total 0.2 mg/dL (0.2-1.0)
--- NOTE | 2024-06-01 22:07 | DVH ---
LEFT Upper Extremity Venous Duplex Clinical History: arm pain Comparison: None Technique: Duplex Doppler evaluation of the venous system of the LEFT lower neck and upper extremity including c olor Doppler and spectral/pulsed waveform analysis was performed. Findings: The internal jugular vein demonstrates appropriate compressibility and waveform variability . The subclavian vein is patent on color Doppler evaluation without intraluminal thrombus and demonstra chris waveform variability . The visualized portion of the brachiocephalic vein is patent on color Doppler evaluation without intr aluminal thrombus and demonstrates waveform variability . The axillary vein demonstrates appropriate compressibility and waveform variability . The brachial veins demonstrate appropriate compressibility and patency on Doppler evaluation. The basilic vein demonstrates appropriate compressibility and patency on Doppler evaluation. The cephalic vein demonstrates appropriate compressibility and patency on Doppler evaluation. POSTERIOR PORTION OF THE LEFT UPPER ARM IS a ANECHOIC AVASCULAR STRUCTURE MEASURING 8 MM Impression: 1. No venous thrombus identified in the LEFT upper extremity vessels evaluated above. 2. If clinical concern/symptoms persist or worsen, short-interval follow-up study is suggested.
[2024-06-01 23:38] VITALS: BP 126/52; PULSE 68; RESP 17; TEMP 98.9; O2SAT 95
== END 2024-06-01 23:44 | disposition home or self-care (01) ==
LOC: ER 19:39
DX: S40.022A Contusion of left upper arm, initial encounter (principal); M19.90 Unspecified osteoarthritis, unspecified site; J45.909 Unspecified asthma, uncomplicated; K21.9 Gastro-esophageal reflux disease without esophagitis; E78.5 Hyperlipidemia, unspecified; Z90.49 Acquired absence of other specified parts of digestive tract; Z90.710 Acquired absence of both cervix and uterus; Z88.0 Allergy status to penicillin; Z88.2 Allergy status to sulfonamides; Z79.899 Other long term (current) drug therapy; Z79.01 Long term (current) use of anticoagulants; X58.XXXA Exposure to other specified factors, initial encounter; Y93.89 Activity, other specified; Y92.89 Other specified places as the place of occurrence of the external cause; Y99.8 Other external cause status
CPT/HCPCS: 36415; 80053; 85025; 85379; 93971

== ENCOUNTER → 2024-06-30 | Outpatient (CLI) | payer MEDICAID ==
[2024-06-30 16:24] LABS: Basophils # (auto) 0.1 10 ^3/uL (0-0.2); Eosinophils # (auto) 0.2 10 ^3/uL (0-0.8); Eosinophils % (auto) 2.2 % (0.0-7.0); Hematocrit 39.7 % (36.0-46.0); Hemoglobin 13.4 g/dL (12.2-16.2); Lymphocytes # (auto) 4.4 10 ^3/uL (0.4-5.4); Lymphocytes % (auto) 45.3 % (10.0-50.0); Mean Corpuscular Hemoglobin 29.3 pg (28.0-32.0); Mean Corpuscular Hgb Conc. 33.8 g/dL (32.0-36.0); Mean Corpuscular Volume 86.6 fL (80.0-100.0); Monocytes # (auto) 0.7 10 ^3/uL (0-1.3); Monocytes % (auto) 6.9 % (0.0-12.0); Neutrophils # (auto) 4.4 10 ^3/uL (1.6-8.6); Neutrophils % (auto) 44.6 % (37.0-80.0); Nucleated Red Blood Cells % 0.1 %; Platelet Count (auto) 248 10^3/uL (140-450); Red Blood Cells 4.58 10^6/uL (4.0-5.20); Red Cell Distribution Width 13.7 % (11.8-14.3); White Blood Cell 9.8 10^3/uL (4.4-10.8)
[2024-07-02 23:07] LABS: Dilute Prothrombin Time(dPT) 44.9 sec (0.0-47.6); PTT-LA 35.1 sec (0.0-43.5); Thrombin Time 19.1 sec (0.0-23.0); dPT Confirm Ratio 1.03 Ratio (0.00-1.34); dRVVT 69.5 sec (0.0-47.0); dRVVT Confirm 1.3 ratio (0.8-1.2); dRVVT Mix 48.3 sec (0.0-40.4)
[2024-07-03 01:06] LABS: Lupus Interpretation Comment: (.)
== END | disposition home or self-care (01) ==
LOC: LAB 15:16
PROVIDERS: ATTEND Internal Medicine
DX: I26.92 Saddle embolus of pulmonary artery without acute cor pulmonale (principal)
CPT/HCPCS: 36415; 85025; 85613; 85670; 85705; 85732

== ENCOUNTER 2024-12-30 06:52 | Day surgery (SDC) | payer MEDICARE, MEDICAID ==
[~2024-12-30] VITALS: Ht 154.9 cm; Wt 100.7 kg
[~2024-12-30 06:52] MED LIST changes: +CETI1TAB PO; +CHOL1TAB28 PO; +DESL5TAB OR; -DICL1GEL73 TD; -DOXY1CAP57 PO; +FAMO-68 PO; -FLUT0.05 NAS; +FURO20TA3 PO; +GABA-1308 PO; +MAGN100T9 PO; +MULT50TA PO; -TRAM50TA2 PO
[2024-12-30] MEDS ORDERED: fentaNYL CITRATE 100 MCG/2 ML VL ONE (09:17)
[2024-12-30] MEDS ORDERED: PROPOFOL 10 MG/ML 20 ML IV ONE (09:17)
[2024-12-30 09:37] VITALS: PULSE 85; RESP 13; TEMP 98.3; O2SAT 98
--- NOTE | 2024-12-30 09:38 | DVHHP2 ---
GI H&P Pre-Op Assessment Date: 12/30/24 Chief complaint: colon cancer screening, history of colon polyp, blood in stool HPI: per clinic note Past medical history: per clinic note Past surgical history: per clinic note Family history: per clinic note Physical exam: General: NAD, AAOX3 HEENT: PERRL, no scleral icterus, normal hearing, gums without lesions or bleeding, oropharynx clear without erythema or exudate. Neck: Supple without enlargement of the thyroid, or lymphadenopathy. Chest: Normal size and shape, no tenderness, lung martin clear to auscultation and percussion, nonlabored breathing. Heart: RRR, no murmur Abdomen: non-distended, no tenderness to palpation, +BS, no hepatosplenomegaly Extremities: no edema Neurological: CN II-XII intact, sensation intact in all extremities, 5+ strength in all extremities Skin: No rashes, No jaundice Assessment: - colon cancer screening, history of colon polyp, blood in stool Plan: - Colonoscopy - Risks (bleeding, infection, perforation, reaction to sedation medications and cardiopulmonary arrest) and benefit of the procedure were explained to patient. Patient agrees to undergo the procedure. ROD VERA MD Dec 30, 2024 09:38
--- NOTE | 2024-12-30 09:40 | DVHDS2 ---
Physician Discharge Progress N Final Diagnosis: Colon polyp, internal hemorrhoids Operations or Procedures: Operations or Procedures Colonoscopy with cold biopsy polypectomy Condition on Discharge: Good Disposition: Home Discharge Instructions: Diet: Regular Activity: No Restrictions, As Tolerated Medications: Resume previous home medications Follow Up Care: Discharge Statement: "Patient was advised to return to the ER or call 911 if any headaches, dizziness, shortness of breath, chest pain, abdominal pain, bleeding, fevers, or worsening of medical condition. Patient was counseled about treatment plan, medications, possible side effects, patientverbalized understanding. All questions were answered to the best of my ability. This discharge took greater then 30 minutes in planning, reviewing documentation, counseling the patient, and discussing with other team members." ROD VERA MD Dec 30, 2024 09:40
--- NOTE | 2024-12-30 09:40 | DVHOP2 ---
Operative Report DATE OF OPERATION: 12/30/24 PROCEDURE: Colonoscopy. PREOPERATIVE INDICATION: The patient is a 74 -year-old female with history of Polyp undergoing colonoscopy for colon cancer screening and blood in stool. POSTOPERATIVE DIAGNOSES: 1. 2 mm right colon polyp was removed with cold biopsy forceps. 2. Internal hemorrhoids PROCEDURE PERFORMED BY: Chapin Penn M.D. SCOPE: Olympus videocolonoscope. ASA CLASS: 3 PREOPERATIVE MEDICATIONS: MAC with Dr Higuera PROCEDURE IN DETAIL: After obtaining an informed consent, the patient was placed on left lateral decubitus position. She was then sedated with the above medications. A rectal examination was performed that was normal. The colonoscope was then passed through the anus into the rectosigmoid and through the descending, transverse, and ascending colon up to the cecum with visu alization of the appendiceal orifice, base of the cecum and the ileocecal valve. A 2 mm right colon polyp was removed with cold biopsy forceps. There were internal hemorrhoids. The colonoscope was then withdrawn. The patient tolerated the procedure well without difficulty. WITHDRAWAL TIME: 7 minutes QUALITY OF THE PREP: [place] Bowel Prep score: 5 COMPLICATIONS : None SPECIMENS: Colon polyp DISPOSITION: D/C to home PLAN: 1. Repeat colonoscopy base on biopsy result CHAPIN PENN MD Dec 30, 2024 09:39
[2024-12-30 09:45] VITALS: PULSE 76; RESP 16; O2SAT 97
[2024-12-30 09:52] VITALS: BP 126/63; PULSE 54; RESP 18; O2SAT 98
== END 2024-12-30 10:10 | disposition home or self-care (01) ==
LOC: GI 06:52
PROVIDERS: ATTEND Internal Medicine Gastroenterology
DX: K92.1 Melena (principal); D12.2 Benign neoplasm of ascending colon; K63.5 Polyp of colon; K64.8 Other hemorrhoids; K21.9 Gastro-esophageal reflux disease without esophagitis; E78.5 Hyperlipidemia, unspecified; E03.9 Hypothyroidism, unspecified; J45.909 Unspecified asthma, uncomplicated; E66.9 Obesity, unspecified; Z68.41 Body mass index [BMI] 40.0-44.9, adult; Z86.718 Personal history of other venous thrombosis and embolism; Z88.0 Allergy status to penicillin; Z88.2 Allergy status to sulfonamides; Z98.891 History of uterine scar from previous surgery; Z90.89 Acquired absence of other organs; Z90.710 Acquired absence of both cervix and uterus; Z98.890 Other specified postprocedural states
CPT/HCPCS: 45380; 88305; J2704; J3010; J7030